=== PATIENT | male | born 1975 | race American Indian/Alaskan Native ===

== ENCOUNTER 2021-11-05 12:36 | Inpatient (IN) | payer OTHER ==
[2021-11-05] MEDS ORDERED: NITROGLYCERIN DRIP 50 MG/250 ML BOTTLE IV ONE (12:52)
--- NOTE | 2021-11-05 13:01 | Emergency Department Report ---
ED Shortness of Breath HPI - General Chief Complaint: Dyspnea/Respdistress Stated Complaint: CHF Time Seen by Provider: 11/05/21 12:49 Source: patient, EMS, old records reviewed (none) Mode of arrival: Stretcher Limitations: No Limitations - History of Present Illness Initial Comments: 46-year-old male with no known past medical history because he has not been to the doctor since the age of 6 presents to the hospital from [facility] with diagnosis of renal failure, CHF, and hypertensive emergency. Patient states he has been having progressively worsening dyspnea on exertion, orthopnea, edema and PND for the past 2 weeks. Vital signs at [facility] were initially 257/159, heart rate 107, sat 95% (questionable room air), and respiratory rate 22 patient denies chest pain or infectious symptoms. Patient was treated with Lasix 80 mg IV, labetalol 20 mg IV, and a 1 inch Nitropaste was placed. Patient is diaphoretic without respiratory upon my examination. He denies any urine output since receiving IV Lasix - Related Data Home Medications Medication Instructions Recorded Confirmed Last Taken No Known Home Medications [No 11/06/21 11/06/21 Unknown Reported Home Medications] Allergies Allergy/AdvReac Type Severity Reaction Status Date / Time No Known Allergies Allergy Verified 11/05/21 12:44 ED Review of Systems ROS: Stated complaint: CHF Other details as noted in HPI Comment: All other systems reviewed and negative ED Past Medical Hx - Medications Home Medications: Home Medications Medication Instructions Recorded Confirmed Last Taken Type No Known Home Medications [No 11/06/21 11/06/21 Unknown History Reported Home Medications] ED Physical Exam - General Limitations: No Limitations - Other Other exam information: General: No acute distress Head: Atraumatic Eyes: normal appearance ENT: Moist mucous membranes Neck: Normal appearance, no midline tenderness Chest: Clear to auscultation bilaterally CV: Regular rate and rhythm Abdomen: Soft, normal bowel sounds, nontender, nondistended, no rebound or guarding Back: Normal inspection Extremity: Normal inspection, full range of motion, lower extremity edema Neuro: Alert O x 3, no facial asymmetry, speech clear, no gross motor sensory deficit Psych: Appropriate behavior Skin: Diaphoretic ED Course Vital Signs 11/05/21 11/05/21 11/05/21 12:39 12:54 12:55 Temperature 98.7 F 97.9 F Pulse Rate 85 83 Pulse Rate [ From Monitor] Respiratory 18 20 20 Rate Blood Pressure 219/157 Blood Pressure 240/140 219/157 [Left] O2 Sat by Pulse 99 99 99 Oximetry 11/05/21 11/05/21 11/05/21 13:00 13:16 13:30 Temperature Pulse Rate 85 85 80 Pulse Rate [ From Monitor] Respiratory 20 13 18 Rate Blood Pressure 219/157 209/157 199/132 Blood Pressure [Left] O2 Sat by Pulse 99 100 100 Oximetry 11/05/21 11/05/21 11/05/21 13:46 14:00 14:08 Temperature Pulse Rate 85 81 Pulse Rate [ From Monitor] Respiratory 39 H 20 Rate Blood Pressure 225/153 225/157 Blood Pressure 206/151 [Left] O2 Sat by Pulse 97 100 100 Oximetry 11/05/21 11/05/21 11/05/21 14:15 14:30 14:31 Temperature 98.4 F Pulse Rate 83 83 80 Pulse Rate [ From Monitor] Respiratory 31 H 29 H 26 H Rate Blood Pressure 174/105 160/105 Blood Pressure 160/105 [Left] O2 Sat by Pulse 98 98 99 Oximetry 11/05/21 11/05/21 11/05/21 14:46 15:00 15:16 Temperature Pulse Rate 85 84 82 Pulse Rate [ From Monitor] Respiratory 19 17 19 Rate Blood Pressure 162/100 153/83 169/88 Blood Pressure 156/102 [Left] O2 Sat by Pulse 98 99 98 Oximetry 11/05/21 11/05/21 11/05/21 15:30 15:46 16:00 Temperature Pulse Rate 83 86 88 Pulse Rate [ From Monitor] Respiratory 20 15 20 Rate Blood Pressure 149/81 141/94 141/94 Blood Pressure 168/96 [Left] O2 Sat by Pulse 98 99 99 Oximetry 11/05/21 11/05/21 11/05/21 16:16 16:30 16:46 Temperature Pulse Rate 84 83 Pulse Rate [ From Monitor] Respiratory 32 H 21 Rate Blood Pressure 151/84 148/90 150/87 Blood Pressure [Left] O2 Sat by Pulse 98 98 95 Oximetry 11/05/21 11/05/21 11/05/21 17:00 17:16 17:18 Temperature 98.4 F Pulse Rate 85 89 88 Pulse Rate [ From Monitor] Respiratory 41 H 26 H 20 Rate Blood Pressure 168/86 184/83 Blood Pressure 166/79 [Left] O2 Sat by Pulse 98 97 97 Oximetry 11/05/21 11/05/21 11/05/21 17:30 17:46 18:00 Temperature Pulse Rate 87 89 91 H Pulse Rate [ From Monitor] Respiratory 27 H 30 H 37 H Rate Blood Pressure 159/86 152/79 168/95 Blood Pressure [Left] O2 Sat by Pulse 98 97 98 Oximetry 11/05/21 11/05/21 11/05/21 18:13 18:16 18:30 Temperature Pulse Rate 87 88 93 H Pulse Rate [ From Monitor] Respiratory 20 18 18 Rate Blood Pressure 164/93 165/98 Blood Pressure 164/93 [Left] O2 Sat by Pulse 98 99 94 Oximetry 11/05/21 11/05/21 11/05/21 18:46 19:00 19:16 Temperature Pulse Rate 85 86 86 Pulse Rate [ From Monitor] Respiratory 27 H 19 34 H Rate Blood Pressure 159/86 149/92 157/86 Blood Pressure [Left] O2 Sat by Pulse 92 89 91 Oximetry 11/05/21 11/05/21 11/05/21 19:30 19:46 20:00 Temperature Pulse Rate 84 95 H 83 Pulse Rate [ From Monitor] Respiratory 14 21 28 H Rate Blood Pressure 160/93 142/119 143/88 Blood Pressure [Left] O2 Sat by Pulse 89 91 92 Oximetry 11/05/21 11/05/21 11/05/21 20:16 20:30 20:46 Temperature Pulse Rate 83 94 H 89 Pulse Rate [ From Monitor] Respiratory 30 H 23 19 Rate Blood Pressure 183/91 170/92 178/86 Blood Pressure [Left] O2 Sat by Pulse 92 91 96 Oximetry 11/05/21 11/05/21 11/05/21 21:00 21:16 21:30 Temperature Pulse Rate 89 Pulse Rate [ From Monitor] Respiratory 20 Rate Blood Pressure 165/104 166/95 169/96 Blood Pressure [Left] O2 Sat by Pulse 96 93 95 Oximetry 11/05/21 11/05/21 11/05/21 21:46 22:00 22:16 Temperature Pulse Rate 88 Pulse Rate [ From Monitor] Respiratory 11 L Rate Blood Pressure 187/94 187/94 177/96 Blood Pressure [Left] O2 Sat by Pulse 96 95 93 Oximetry 11/05/21 11/05/21 11/05/21 22:30 22:46 23:00 Temperature Pulse Rate 84 80 70 Pulse Rate [ From Monitor] Respiratory 22 28 H 20 Rate Blood Pressure 177/96 179/110 179/110 Blood Pressure [Left] O2 Sat by Pulse 90 98 96 Oximetry 11/05/21 11/05/21 11/05/21 23:16 23:28 23:30 Temperature Pulse Rate 91 H 96 H 86 Pulse Rate [ From Monitor] Respiratory 21 13 32 H Rate Blood Pressure 179/110 179/110 179/110 Blood Pressure [Left] O2 Sat by Pulse 99 98 99 Oximetry 11/05/21 11/05/21 11/05/21 23:34 23:45 23:56 Temperature Pulse Rate 90 87 84 Pulse Rate [ From Monitor] Respiratory 40 H 31 H 31 H Rate Blood Pressure 179/110 182/104 182/104 Blood Pressure [Left] O2 Sat by Pulse 98 98 95 Oximetry 11/06/21 11/06/21 11/06/21 00:00 00:16 00:30 Temperature Pulse Rate 88 82 79 Pulse Rate [ From Monitor] Respiratory 30 H 28 H 28 H Rate Blood Pressure 182/104 179/110 179/110 Blood Pressure [Left] O2 Sat by Pulse 97 97 97 Oximetry 11/06/21 11/06/21 11/06/21 00:45 01:00 01:16 Temperature Pulse Rate 72 86 83 Pulse Rate [ From Monitor] Respiratory 22 14 40 H Rate Blood Pressure 179/103 179/103 179/103 Blood Pressure [Left] O2 Sat by Pulse 96 99 94 Oximetry 11/06/21 11/06/21 11/06/21 01:30 01:46 02:00 Temperature Pulse Rate 83 80 76 Pulse Rate [ From Monitor] Respiratory 29 H 21 22 Rate Blood Pressure 179/103 180/114 180/114 Blood Pressure [Left] O2 Sat by Pulse 100 99 99 Oximetry 11/06/21 11/06/21 11/06/21 02:16 02:30 02:45 Temperature Pulse Rate 75 81 78 Pulse Rate [ From Monitor] Respiratory 28 H 24 30 H Rate Blood Pressure 180/114 180/114 177/114 Blood Pressure [Left] O2 Sat by Pulse 98 98 99 Oximetry 11/06/21 11/06/21 11/06/21 03:00 03:16 03:30 Temperature Pulse Rate 81 79 76 Pulse Rate [ From Monitor] Respiratory 22 27 H 27 H Rate Blood Pressure 177/114 177/114 177/114 Blood Pressure [Left] O2 Sat by Pulse 100 97 81 L Oximetry 11/06/21 11/06/21 11/06/21 03:45 04:00 04:16 Temperature Pulse Rate 83 76 84 Pulse Rate [ From Monitor] Respiratory 23 38 H 34 H Rate Blood Pressure 185/115 185/115 185/115 Blood Pressure [Left] O2 Sat by Pulse 93 99 93 Oximetry 11/06/21 11/06/21 11/06/21 04:30 04:45 05:00 Temperature Pulse Rate 79 73 Pulse Rate [ From Monitor] Respiratory 24 32 H Rate Blood Pressure 185/115 174/103 174/103 Blood Pressure [Left] O2 Sat by Pulse 99 99 97 Oximetry 11/06/21 11/06/21 11/06/21 05:16 05:30 05:45 Temperature Pulse Rate 68 79 76 Pulse Rate [ From Monitor] Respiratory Rate Blood Pressure 174/103 174/103 181/105 Blood Pressure [Left] O2 Sat by Pulse 99 99 98 Oximetry 11/06/21 11/06/21 11/06/21 07:00 09:00 10:00 Temperature Pulse Rate 86 84 Pulse Rate [ From Monitor] Respiratory 23 Rate Blood Pressure 177/110 190/121 180/118 Blood Pressure [Left] O2 Sat by Pulse 100 100 92 Oximetry 11/06/21 11/06/21 11/06/21 11:00 12:00 13:00 Temperature Pulse Rate Pulse Rate [ From Monitor] Respiratory Rate Blood Pressure 165/103 165/103 153/86 Blood Pressure [Left] O2 Sat by Pulse 95 100 76 L Oximetry 11/06/21 11/06/21 11/06/21 14:00 15:00 16:00 Temperature Pulse Rate Pulse Rate [ 85 From Monitor] Respiratory 20 Rate Blood Pressure 156/93 156/93 143/83 Blood Pressure [Left] O2 Sat by Pulse 97 93 98 Oximetry 11/06/21 11/06/21 11/06/21 16:10 16:20 16:30 Temperature Pulse Rate Pulse Rate [ From Monitor] Respiratory Rate Blood Pressure 143/83 143/83 143/83 Blood Pressure [Left] O2 Sat by Pulse 98 95 99 Oximetry 11/06/21 16:44 Temperature Pulse Rate Pulse Rate [ From Monitor] Respiratory Rate Blood Pressure Blood Pressure [Left] O2 Sat by Pulse 94 Oximetry - Consultations Consultation #1: 11/05/21 17:21 Case s/w DR Wilkes with [facility]. granted permission to admit here. Will follow up on patient. ED Medical Decision Making - Lab Data Result diagrams: 11/07/21 05:53 11/07/21 05:53 Lab Results 11/05/21 11/05/21 11/05/21 Range/Units 13:26 13:26 13:26 WBC 10.4 (4.5-11.0) K/mm3 RBC 5.28 H (3.65-5.03) M/mm3 Hgb 14.9 (11.8-15.2) gm/dl Hct 46.2 H (35.5-45.6) % MCV 88 (84-94) fl MCH 28 (28-32) pg MCHC 32 (32-34) % RDW 17.7 H (13.2-15.2) % Plt Count 266 (140-440) K/mm3 Lymph % (Auto) 22.6 (13.4-35.0) % Ida % (Auto) 5.8 (0.0-7.3) % Eos % (Auto) 0.9 (0.0-4.3) % Baso % (Auto) 1.0 (0.0-1.8) % Lymph # (Auto) 2.3 (1.2-5.4) K/mm3 Ida # (Auto) 0.6 (0.0-0.8) K/mm3 Eos # (Auto) 0.1 (0.0-0.4) K/mm3 Baso # (Auto) 0.1 (0.0-0.1) K/mm3 Seg Neutrophils % 69.7 (40.0-70.0) % Seg Neutrophils # 7.2 (1.8-7.7) K/mm3 PT 18.9 H (12.2-14.9) Sec. INR 1.41 H (0.87-1.13) APTT 37.1 H (24.2-36.6) Sec. D-Dimer 378.20 H (0-234) ng/mlDDU Sodium 144 (137-145) mmol/L Potassium 3.9 (3.6-5.0) mmol/L Chloride 105.9 (98-107) mmol/L Carbon Dioxide 26 (22-30) mmol/L Anion Gap 16 mmol/L BUN 28 H (9-20) mg/dL Creatinine 1.9 H (0.8-1.3) mg/dL Estimated GFR 46 ml/min BUN/Creatinine Ratio 15 % Glucose 110 H (75-100) mg/dL Calcium 9.2 (8.4-10.2) mg/dL Total Bilirubin 1.20 (0.1-1.2) mg/dL AST 49 H (5-40) units/L ALT 103 H (7-56) units/L Alkaline Phosphatase 83 (35-129) units/L Troponin T 0.018 (0.00-0.029) ng/mL NT-Pro-B Natriuret Pep (0-450) pg/mL Total Protein 6.4 (6.3-8.2) g/dL Albumin 3.8 L (3.9-5) g/dL Albumin/Globulin Ratio 1.5 % 11/05/21 11/05/21 Range/Units 15:35 15:35 WBC (4.5-11.0) K/mm3 RBC (3.65-5.03) M/mm3 Hgb (11.8-15.2) gm/dl Hct (35.5-45.6) % MCV (84-94) fl MCH (28-32) pg MCHC (32-34) % RDW (13.2-15.2) % Plt Count (140-440) K/mm3 Lymph % (Auto) (13.4-35.0) % Ida % (Auto) (0.0-7.3) % Eos % (Auto) (0.0-4.3) % Baso % (Auto) (0.0-1.8) % Lymph # (Auto) (1.2-5.4) K/mm3 Ida # (Auto) (0.0-0.8) K/mm3 Eos # (Auto) (0.0-0.4) K/mm3 Baso # (Auto) (0.0-0.1) K/mm3 Seg Neutrophils % (40.0-70.0) % Seg Neutrophils # (1.8-7.7) K/mm3 PT (12.2-14.9) Sec. INR (0.87-1.13) APTT (24.2-36.6) Sec. D-Dimer (0-234) ng/mlDDU Sodium (137-145) mmol/L Potassium (3.6-5.0) mmol/L Chloride (98-107) mmol/L Carbon Dioxide (22-30) mmol/L Anion Gap mmol/L BUN (9-20) mg/dL Creatinine (0.8-1.3) mg/dL Estimated GFR ml/min BUN/Creatinine Ratio % Glucose (75-100) mg/dL Calcium (8.4-10.2) mg/dL Total Bilirubin (0.1-1.2) mg/dL AST (5-40) units/L ALT (7-56) units/L Alkaline Phosphatase (35-129) units/L Troponin T < 0.010 (0.00-0.029) ng/mL NT-Pro-B Natriuret Pep 7394 H (0-450) pg/mL Total Protein (6.3-8.2) g/dL Albumin (3.9-5) g/dL Albumin/Globulin Ratio % - EKG Data -: EKG Interpreted by [facility] EKG shows normal: sinus rhythm, ST-T waves (no stemi, LVH) Rate: normal - EKG Data When compared to previous EKG there are: previous EKG unavailable - Radiology Data Radiology results: report reviewed CHEST 1 VIEW 11/05/2021 12:15 PM INDICATION / CLINICAL INFORMATION: Dyspnea. COMPARISON: None available. FINDINGS: SUPPORT DEVICES: None. HEART / MEDIASTINUM: There is moderate enlargement of the cardiac silhouette. No other significant abnormality. LUNGS / PLEURA: No significant pulmonary abnormality. No significant pleural effusion. No pneumothorax. ADDITIONAL FINDINGS: No significant additional findings. IMPRESSION: Moderate enlargement of the cardiac silhouette, possibly due to a pericardial effusion. No other acute findings. CT angio chest INDICATION / CLINICAL INFORMATION: sob, elevated ddimer, cardiomegaly 100ml of [id number]. TECHNIQUE: Axial CT images were obtained through the chest after injection of 100 cc of Omnipaque 350 IV contrast. 3 plane MIP and/or 3D reconstructions were produced. All CT scans at this location are performed using CT dose reduction for ALARA by means of automated exposure control. COMPARISON: None available. FINDINGS: PULMONARY ARTERIES: Suboptimal contrast bolus timing limits evaluation for segmental and subsegmental pulmonary emboli. No evidence of central or large segmental pulmonary embolus. THORACIC AORTA: No significant abnormality. HEART: Heart is enlarged. There is no pericardial effusion. CORONARY ARTERY CALCIFICATION: No significant calcification. LYMPHADENOPATHY: No significant thoracic lymphadenopathy. LUNGS/PLEURA: Small right pleural effusion with asymmetric right lower lobe airspace consolidation. Left lung is clear. No pneumothorax. OTHER FINDINGS: None. UPPER ABDOMEN: No acute findings. SKELETAL SYSTEM: No acute osseous findings. IMPRESSION: 1. Suboptimal contrast bolus timing limits evaluation for segmental and subsegmental pulmonary emboli. No evidence of central or large segmental pulmonary embolus. 2. Small right pleural effusion with asymmetric right lower lobe airspace consolidation, may reflect atelectasis or developing pneumonia. 3. Cardiomegaly without evidence of significant pulmonary edema. - Medical Decision Making 46-year-old male with with newly diagnosed hypertension, CHF, renal sufficiency with likely longstanding on treated hypertensio. Patient requiring Cardene drip. Treated with Lasix and nitroglycerin prior to arrival with minimal improvement in symptoms. CT angiogram chest does not show a pericardial effusion, pulmonary embolism and shows effusion with atelectasis versus infiltrate. Clinical picture more suggestive of pyelectasis/CHF. Mild renal insufficiency noted. Patient required Cardene drip with titration for adequate blood pressure control. Case discussed with Kamer[facility] with subsequent discussion with hospitalist for admission Critical Care Time: Yes Critical care time in (mins) excluding proc time.: 40 Critical care attestation.: If time is entered above; I have spent that time in minutes in the direct care of this critically ill patient, excluding procedure time. Critical Care Time: 40 Minutes of critical care time excluding procedures were used in the care of the patient. I came immediately to the bedside upon patient's arrival. I obtained history from EMS at the bedside. I discussed treatment plan with the nursing team members. I reviewed electronic recordPatient required multiple interventions, reassessments, and titration of hypertensive drips. Patient also require consultation with Kameron regarding admission disposition ED Disposition Clinical Impression: Hypertensive emergency, New onset of congestive heart failure, Obesity, Acute renal insufficiency Disposition: ADMITTED INPATIENT Is pt being admited?: Yes Condition: Stable Time of Disposition: 17:24 (Dr Robles/[facility])
--- NOTE | 2021-11-05 13:24 | XRay Report ---
CHEST 1 VIEW 11/05/2021 12:15 PM INDICATION / CLINICAL INFORMATION: Dyspnea. COMPARISON: None available. FINDINGS: SUPPORT DEVICES: None. HEART / MEDIASTINUM: There is moderate enlargement of the cardiac silhouette. No other significant ab normality. LUNGS / PLEURA: No significant pulmonary abnormality. No significant pleural effusion. No pneumothora x. ADDITIONAL FINDINGS: No significant additional findings. IMPRESSION: Moderate enlargement of the cardiac silhouette, possibly due to a pericardial effusion. No other acut e findings. Signer Name: Oliver Izaguirre MD Signed: 11/05/2021 1:19 PM Workstation Name: [email or web address]
[2021-11-05] MEDS ORDERED: niCARdipine DRIP 40 MG/200 ML BAG IV ONE (13:32)
[2021-11-05 14:27] LABS: Basophils # (Auto) 0.1 K/mm3 (0.0-0.1); Eosinophils # (Auto) 0.1 K/mm3 (0.0-0.4); Eosinophils % (Auto) 0.9 % (0.0-4.3); Hematocrit 46.2 % (35.5-45.6); Hemoglobin 14.9 gm/dl (11.8-15.2); Lymphocytes # (Auto) 2.3 K/mm3 (1.2-5.4); Lymphocytes % (Auto) 22.6 % (13.4-35.0); Mean Corpuscular HGB Conc 32 % (32-34); Mean Corpuscular Volume 88 fl (84-94); Monocytes # (Auto) 0.6 K/mm3 (0.0-0.8); Monocytes % (Auto) 5.8 % (0.0-7.3); Platelet Count 266 K/mm3 (140-440); Red Blood Count 5.28 M/mm3 (3.65-5.03); Red Cell Distribution Width 17.7 % (13.2-15.2)
[2021-11-05 14:28] LABS: INR 1.41 (0.87-1.13)
[2021-11-05 14:29] LABS: Partial Thromboplastin Time 37.1 Sec. (24.2-36.6)
[2021-11-05 14:34] LABS: Albumin 3.8 g/dL (3.9-5); Calcium 9.2 mg/dL (8.4-10.2)
--- NOTE | 2021-11-05 17:09 | Cat Scan Report ---
CT angio chest INDICATION / CLINICAL INFORMATION: sob, elevated ddimer, cardiomegaly 100ml of [id number]. TECHNIQUE: Axial CT images were obtained through the chest after injection of 100 cc of Omnipaque 350 IV contrast. 3 plane MIP and/or 3D reconstructions were produced. All CT scans at this location are performed using CT dose reduction for ALARA by means of automated exposure control. COMPARISON: None available. FINDINGS: PULMONARY ARTERIES: Suboptimal contrast bolus timing limits evaluation for segmental and subsegmental pulmonary emboli. No evidence of central or large segmental pulmonary embolus. THORACIC AORTA: No significant abnormality. HEART: Heart is enlarged. There is no pericardial effusion. CORONARY ARTERY CALCIFICATION: No significant calcification. LYMPHADENOPATHY: No significant thoracic lymphadenopathy. LUNGS/PLEURA: Small right pleural effusion with asymmetric right lower lobe airspace consolidation. L eft lung is clear. No pneumothorax. OTHER FINDINGS: None. UPPER ABDOMEN: No acute findings. SKELETAL SYSTEM: No acute osseous findings. IMPRESSION: 1. Suboptimal contrast bolus timing limits evaluation for segmental and subsegmental pulmonary emboli . No evidence of central or large segmental pulmonary embolus. 2. Small right pleural effusion with asymmetric right lower lobe airspace consolidation, may reflect atelectasis or developing pneumonia. 3. Cardiomegaly without evidence of significant pulmonary edema. Signer Name: Justin Cervantes MD Signed: 11/05/2021 5:05 PM Workstation Name: [email or web address]
--- NOTE | 2021-11-05 17:24 | History and Physical Report ---
History of Present Illness Chief complaint: It is hard to breathe and my legs are swollen History of present illness: 47 YO Male with Obesity Hypoventilation Syndrome, HTN presents ED for evaluation. Patient reports it is hard to breathe and my legs are swollen. Patient states that over the past 2 weeks he has experienced shortness of breath, decreased exercise tolerance, dyspnea on exertion, dyspnea at rest, leg swelling, orthopnea, paroxysmal nocturnal dyspnea, 10 pound unintentional weight gain, and shortness of breath with worsening symptoms over the same timeframe. Patient was seen and evaluated at the [place] outpatient clinic today and was found to have an elevated blood pressure and a pulse oximetry of 85% on room air. EMS was notified and upon arrival the patient was found to be in distress and subsequent transported to [facility] for further care and evaluation of the aforementioned symptoms. The patient was seen and evaluated in the emergency department. All lab and imaging studies reviewed. Patient was found to have a blood pressure 219-247 mmHg / 140-157 mmHg which is consistent with hypertensive emergency as well as clinical symptoms consistent with CHF decompensation, as well as acute kidney injury. Patient initiated on nitro drip and admitted to IM due to increased risk of worsening symptoms and for medical stabilization. Patient also initiated on CHF protocol. Patient treated with diuretic therapy in the emergency department with improvement in symptoms and normalization of pulse oximetry. Patient denies fever, chills, chest pain, palpitation, adductive cough, skin rash, recent contact, or known exposure to COVID-19. No prior admission for review. No medication listed at time of admission for reconciliation. Advanced care planning conducted in ED. Past History Past Medical History: other (See HPI) Past Surgical History: No surgical history, Other (Reviewed) Social history: , lives with family. denies: smoking, alcohol abuse, prescription drug abuse Family history: diabetes, hypertension Medications and Allergies Allergies Allergy/AdvReac Type Severity Reaction Status Date / Time No Known Allergies Allergy Verified 11/05/21 12:44 Active Meds: Active Medications Nicardipine/Sodium Chloride (Cardene Drip 40 Mg/200 Ml) 40 mg in 200 mls @ 25 mls/hr IV ONCE ONE; Protocol Stop: 11/05/21 21:31 Last Titration: 11/05/21 14:06 Dose: 7.5 mg/hr, 37.5 mls/hr Review of Systems Constitutional: weight gain, fatigue, no fever, no chills, no sweats Ears, nose, mouth and throat: no ear pain, no ear discharge, no tinnitis, no decreased hearing Cardiovascular: orthopnea, shortness of breath, dyspnea on exertion, paroxysmal nocturnal dyspnea, high blood pressure, leg edema, decreased exercise tolerance, no chest pain Respiratory: no cough, no cough with sputum, no excessive sputum, no hemoptysis Gastrointestinal: no abdominal pain, no nausea, no vomiting, no diarrhea, no constipation Genitourinary Male: no hematuria, no flank pain, no discharge, no urinary frequency, no urinary hesitancy Rectal: no pain, no incontinence, no bleeding Musculoskeletal: no neck stiffness, no neck pain, no arm numbness/tingling, no shooting leg pain Integumentary: no rash, no pruritis, no redness, no sores, no wounds, no jaundice Neurological: no head injury, no transient paralysis, no paralysis, no weakness, no parathesias, no numbness, no seizures Psychiatric: no anxiety, no memory loss, no sleep disturbances, no hypersomnia, no change in appetite, no change in libido, no disorientation Endocrine: no cold intolerance, no heat intolerance, no polyphagia, no excessive thirst, no polydipsia, no nocturia, no excessive sweating Hematologic/Lymphatic: no easy bruising, no easy bleeding Allergic/Immunologic: no urticaria, no allergic rhinitis, no wheezing Exam - Constitutional Vitals: Temp Pulse Resp BP Pulse Ox 98.4 F 88 20 166/79 97 11/05/21 17:18 11/05/21 17:18 11/05/21 17:18 11/05/21 17:18 11/05/21 17:18 General appearance: Present: mild distress, obese - EENT Eyes: Present: PERRL ENT: hearing intact, clear oral mucosa - Neck Neck: Present: supple, normal ROM - Respiratory Respiratory effort: normal Respiratory: bilateral: diminished - Cardiovascular Heart Sounds: Present: S1 & S2. Absent: rub, click - Extremities Extremities: pulses symmetrical Extremity abnormal: edema Peripheral Pulses: within normal limits - Abdominal General gastrointestinal: Present: soft, non-tender, non-distended, normal bowel sounds Male genitourinary: Present: normal - Integumentary Integumentary: Present: clear, warm, dry - Musculoskeletal Musculoskeletal: gait normal, strength equal bilaterally - Psychiatric Psychiatric: appropriate mood/affect, intact judgment & insight - Neurologic Neurologic: CNII-XII intact, moves all extremities HEART Score - HEART Score Troponin: Troponin T < 0.010 ng/mL (0.00-0.029) 11/05/21 15:35 Results - Labs CBC & Chem 7: 11/05/21 13:26 11/05/21 13:26 Labs: Abnormal lab results 11/05/21 11/05/21 11/05/21 Range/Units 13:26 13:26 13:26 RBC 5.28 H (3.65-5.03) M/mm3 Hct 46.2 H (35.5-45.6) % RDW 17.7 H (13.2-15.2) % PT 18.9 H (12.2-14.9) Sec. INR 1.41 H (0.87-1.13) APTT 37.1 H (24.2-36.6) Sec. D-Dimer 378.20 H (0-234) ng/mlDDU BUN 28 H (9-20) mg/dL Creatinine 1.9 H (0.8-1.3) mg/dL Glucose 110 H (75-100) mg/dL AST 49 H (5-40) units/L ALT 103 H (7-56) units/L NT-Pro-B Natriuret Pep (0-450) pg/mL Albumin 3.8 L (3.9-5) g/dL 11/05/21 Range/Units 15:35 RBC (3.65-5.03) M/mm3 Hct (35.5-45.6) % RDW (13.2-15.2) % PT (12.2-14.9) Sec. INR (0.87-1.13) APTT (24.2-36.6) Sec. D-Dimer (0-234) ng/mlDDU BUN (9-20) mg/dL Creatinine (0.8-1.3) mg/dL Glucose (75-100) mg/dL AST (5-40) units/L ALT (7-56) units/L NT-Pro-B Natriuret Pep 7394 H (0-450) pg/mL Albumin (3.9-5) g/dL Assessment and Plan - Patient Problems (1) Hypertensive emergency Current Visit: Yes Status: Acute Plan to address problem: Admit to IMCU: Nicardipine drip, monitor blood pressure every shift, blood pressure check as per nursing care protocol, (2) New onset of congestive heart failure Current Visit: Yes Status: Acute Plan to address problem: Strict I's/O, monitor urine output every shift, daily weight, afterload reduction, blood pressure control, cardiology team consulted, thyroid panel, magnesium level, echocardiogram ordered and pending at time of admission, diuresis, supplemental oxygen, pulse oximetry. (3) Obesity hypoventilation syndrome Current Visit: Yes Status: Acute Plan to address problem: Balanced diet, increase physical activity discharge, outpatient pulmonary follow-up for sleep study. (4) Acute kidney injury (ANSHU) with acute tubular necrosis (ATN) Current Visit: Yes Status: Acute Plan to address problem: IV fluid resuscitation therapy as clinically indicated, BMP, repeat BMP in a.m., monitor urine output every shift, monitor fluid balance. (5) DVT prophylaxis Current Visit: Yes Status: Acute Plan to address problem: SCD to bilateral lower extremities while in bed (6) Advance care planning Current Visit: Yes Status: Acute Plan to address problem: Disease education data, care plan discussed, diagnoses discussed, prognosis discussed, patient is full code. Patient acknowledges understanding and agreement with care plan, +30 minutes. (7) Preventative health care Current Visit: Yes Status: Acute Plan to address problem: Patient counseled regarding weight reduction, meal planning, increase physical activity at discharge, exercise planning, intermittent fasting, outpatient follow-up with primary care physician for all age and risk factor appropriate screening test. +30 minutes.
[2021-11-05] MEDS ORDERED: oxyCODONE /ACETAMINOPHEN 5-325MG TAB PO PRN (17:25)
[2021-11-05] MEDS ORDERED: ALBUTEROL 2.5 MG/3 ML NEBU IH PRN (18:00)
[2021-11-05] MEDS ORDERED: MORPHINE 4 MG/1 ML INJ IV PRN (18:00)
[2021-11-05] MEDS ORDERED: ACETAMINOPHEN 325 MG TAB PO PRN (18:00)
[2021-11-05 20:26] LABS: Free T4 (Free Thyroxine) 1.41 ng/dL (0.76-1.46)
[2021-11-05] MEDS: LISINOPRIL 5 MG TAB PO SCH (23:25)
[2021-11-05] MEDS: METOPROLOL TARTRATE 25 MG TAB PO SCH (23:25)
[2021-11-06 04:43] LABS: BUN/Creatinine Ratio 16; Blood Urea Nitrogen 24 mg/dL (9-20); Calcium 8.9 mg/dL (8.4-10.2); Hemolysis Index 98
[2021-11-06] MEDS ORDERED: FUROSEMIDE 20 MG/2 ML INJ IV SCH ×2 (06:00→08:23)
--- NOTE | 2021-11-06 08:29 | Progress Note ---
Assessment and Plan Assessment and plan: 47 YO Male with Obesity Hypoventilation Syndrome, HTN presents ED for evaluation. Patient reports it is hard to breathe and my legs are swollen. Patient states that over the past 2 weeks he has experienced shortness of breath, decreased exercise tolerance, dyspnea on exertion, dyspnea at rest, leg swelling, orthopnea, paroxysmal nocturnal dyspnea, 10 pound unintentional weight gain, and shortness of breath with worsening symptoms over the same timeframe. Patient was seen and evaluated at the [place] outpatient clinic today and was found to have an elevated blood pressure and a pulse oximetry of 85% on room air. EMS was notified and upon arrival the patient was found to be in distress and subsequent transported to [facility] for further care and evaluation of the aforementioned symptoms. The patient was seen and evaluated in the emergency department. All lab and imaging studies reviewed. Patient was found to have a blood pressure 219-247 mmHg / 140-157 mmHg which is consistent with hypertensive emergency as well as clinical symptoms consistent with CHF decompensation, as well as acute kidney injury. Patient initiated on nitro drip and admitted to IMCU due to increased risk of worsening symptoms and for medical stabilization. Patient also initiated on CHF protocol. Patient treated with diuretic therapy in the emergency department with improvement in symptoms and normalization of pulse oximetry. Patient denies fever, chills, chest pain, palpitation, adductive cough, skin rash, recent contact, or known exposure to COVID-19. No prior admission for review. No medication listed at time of admission for reconciliation. Advanced care planning conducted in ED. Acute hypoxic respiratory failure Hypertensive emergency Presumed Acute Systolic Heart failure NYHA 3 ANSHU with vasomotor nephropathy Secondary Coagulopathy ALVERTO Elevated LFT MORBID OBESITY Non Complaint Has not seen a doctor since he was 6years old until yesterday Has been diagnosed with sleep apnea since college Falls asleep during the day time for the last month Orthopena for the last 10 days Leg swelling for the last 6 weeks Continue with goal-directed medical therapy. Had initially started the patient on Procardia but per cardiology adjusted beta- leola and KOBE inhibitor instead. We will monitor renal function. Dietitian consultation Acurate I/O BP still elevated, started back on Nicardipine drip which appeared to have been off since last night Nephrology consult Cardiology consult Advance care planning discussion had with the patient maintains full code. Plan of care discussed in detail Preventive care discussion also had with the patient on management of congestive heart failure in addition to obstructive sleep apnea and the need to have his clinical sleep study on discharge. Weight loss counseling also provided for 15 minutes. Continue IMCU admission till BP stablized The high probability of a clinically significant, sudden or life threatening deterioration of the [cardiac, pulmonary] system(s) required my full and direct attention, intervention and personal management. The aggregate critical care time was [60] minutes. This time is in addition to time spent performing reporte d procedures but includes the following: [x] Data Review and interpretation [x] Patient assessment and monitoring of vital signs [x] Documentation [x] Medication orders and management History Interval history: Patient seen and examined admitted with congestive heart failure symptoms. Blood pressure still elevated denies any chest pain or headache at this time. Still with orthopnea. Hospitalist Physical - Physical exam Narrative exam: VITAL SIGNS: Reviewed. GENERAL: The patient appears normally developed, morbidly obese vital signs as documented. HEAD: No signs of head trauma. EYES: Pupils are equal. Extraocular motions intact. EARS: Hearing grossly intact. MOUTH: Oropharynx is normal. NECK: No adenopathy, no JVD. CHEST: Chest with fine rales at the bases breath sounds bilaterally. No wheezes. CARDIAC: Regular rate and rhythm. S1 and S2, without murmurs, gallops, or rubs. VASCULAR: +2 pitting edema. Peripheral pulses normal and equal in all ext remities. ABDOMEN: Soft, non tender and non distended. No rebound or guarding, and no masses palpated. Bowel Sounds normal. MUSCULOSKELETAL: Good range of motion of all major joints. Extremities without clubbing, cyanosis. +2 pitting edema bilaterally. NEUROLOGIC EXAM: Alert and oriented x 3 No focal sensory or strength deficits. Speech normal. Follows commands. PSYCHIATRIC: Mood normal. SKIN: detail exam as documented in skin assessment - Constitutional Vitals: Temp Pulse Resp BP Pulse Ox 98.4 F 86 23 177/110 100 11/05/21 17:18 11/06/21 07:00 11/06/21 07:00 11/06/21 07:00 11/06/21 07:00 General appearance: Present: mild distress, obese HEART Score - HEART Score Troponin: Troponin T < 0.010 ng/mL (0.00-0.029) 11/05/21 19:14 Results - Labs CBC & Chem 7: 11/05/21 13:26 11/06/21 03:45 Labs: Laboratory Last Values WBC 10.4 K/mm3 (4.5-11.0) 11/05/21 13:26 RBC 5.28 M/mm3 (3.65-5.03) H 11/05/21 13:26 Hgb 14.9 gm/dl (11.8-15.2) 11/05/21 13:26 Hct 46.2 % (35.5-45.6) H 11/05/21 13:26 MCV 88 fl (84-94) 11/05/21 13:26 MCH 28 pg (28-32) 11/05/21 13:26 MCHC 32 % (32-34) 11/05/21 13: RDW 17.7 % (13.2-15.2) H 11/05/21 13:26 Plt Count 266 K/mm3 (140-440) 11/05/21 13:26 Lymph % (Auto) 22.6 % (13.4-35.0) 11/05/21 13:26 [place] % (Auto) 5.8 % (0.0-7.3) 11/05/21 13:26 Eos % (Auto) 0.9 % (0.0-4.3) 11/05/21 13: Baso % (Auto) 1.0 % (0.0-1.8) 11/05/21 13:26 Lymph # (Auto) 2.3 K/mm3 (1.2-5.4) 11/05/21 13:26 [place] # (Auto) 0.6 K/mm3 (0.0-0.8) 11/05/21 13:26 Eos # (Auto) 0.1 K/mm3 (0.0-0.4) 11/05/21 13:26 Baso # (Auto) 0.1 K/mm3 (0.0-0.1) 11/05/21 13:26 Seg Neutrophils % 69.7 % (40.0-70.0) 11/05/21 13:26 Seg Neutrophils # 7.2 K/mm3 (1.8-7.7) 11/05/21 13:26 PT 18.9 Sec. (12.2-14.9) H 11/05/21 13:26 INR 1.41 (0.87-1.13) H 11/05/21 13:26 APTT 37.1 Sec. (24.2-36.6) H 11/05/21 13:26 D-Dimer 378.20 ng/mlDDU (0-234) H 11/05/21 13:26 Sodium 144 mmol/L (137-145) 11/06/21 03:45 Potassium 3.9 mmol/L (3.6-5.0) 11/06/21 03:45 Chloride 100.0 mmol/L (98-107) 11/06/21 03:45 Carbon Dioxide 28 mmol/L (22-30) 11/06/21 03:45 Anion Gap 20 mmol/L 11/06/21 03:45 BUN 24 mg/dL (9-20) H 11/06/21 03:45 Creatinine 1.5 mg/dL (0.8-1.3) H 11/06/21 03:45 Estimated GFR > 60 ml/min 11/06/21 03:45 BUN/Creatinine Ratio 16 % 11/06/21 03:45 Glucose 97 mg/dL (75-100) 11/06/21 03:45 Calcium 8.9 mg/dL (8.4-10.2) 11/06/21 03:45 Magnesium 2.20 mg/dL (1.7-2.3) 11/05/21 19:14 Total Bilirubin 1.20 mg/dL (0.1-1.2) 11/05/21 13:26 AST 49 units/L (5-40) H 11/05/21 13:26 ALT 103 units/L (7-56) H 11/05/21 13:26 Alkaline Phosphatase 83 units/L (35-129) 11/05/21 13:26 Troponin T < 0.010 ng/mL (0.00-0.029) 11/05/21 19:14 NT-Pro-B Natriuret Pep 7394 pg/mL (0-450) H 11/05/21 15:35 Total Protein 6.4 g/dL (6.3-8.2) 11/05/21 13:26 Albumin 3.8 g/dL (3.9-5) L 11/05/21 13:26 Albumin/Globulin Ratio 1.5 % 11/05/21 13:26 TSH 3.080 mlU/mL (0.270-4.200) 11/05/21 19:14 Free T4 1.41 ng/dL (0.76-1.46) 11/05/21 19:14 Active Medications - Current Medications Current Medications: Generic Name Dose Route Start Last Admin Trade Name Freq PRN Reason Stop Dose Admin Acetaminophen 650 mg 11/05/21 18:00 Acetaminophen 325 Mg Tab PO Q6H PRN Pain MILD(1-3)/Fever >100.5/COLUNGA Albuterol 2.5 mg 11/05/21 18:00 Albuterol 2.5 Mg/3 Ml Nebu IH Q3HRT PRN Shortness Of Breath Furosemide 40 mg 11/06/21 08:23 Furosemide 20 Mg/2 Ml Inj IV BID@0600,1800 [facility] Nicardipine HCl 50 mg/ Sodium 250 mls @ 25 mls/hr 11/06/21 09:00 Chloride IV TITR NORMA Protocol 5 MG/HR Lisinopril 5 mg 11/05/21 22:00 11/05/21 23:25 Lisinopril 5 Mg Tab PO 5 mg BID NORMA Administration Metoprolol Tartrate 25 mg 11/05/21 22:00 11/05/21 23:25 Metoprolol Tartrate 25 Mg Tab PO 25 mg BID NORMA Administration Morphine Sulfate 1 mg 11/05/21 18:00 Morphine 4 Mg/1 Ml Inj IV Q8H PRN Pain , Severe (7-10) Nifedipine 60 mg 11/06/21 10:00 Nifedipine Xl 60 Mg Tab PO QDAY NORMA Oxycodone/Acetaminophen 1 tab 11/05/21 17:25 Oxycodone /Acetaminophen 5-325mg Tab PO Q16H PRN Pain, Moderate (4-6) Sodium Chloride 10 ml 11/05/21 22:00 11/05/21 23:25 Sodium Chloride 0.9% 10 Ml Flush Syringe IV 11/10/21 21:59 10 ml BID NORMA Administration Sodium Chloride 10 ml 11/05/21 17:25 Sodium Chloride 0.9% 10 Ml Flush Syringe IV 11/10/21 17:24 PRN PRN LINE FLUSH
[2021-11-06] MEDS ORDERED: niCARdipine 50 MG in SODIUM CHLORIDE 0.9% 250ML 230 ML IV SCH (09:00)
[2021-11-06] MEDS ORDERED: NIFEdipine XL 60 MG TAB PO SCH (10:00)
[2021-11-06] MEDS: LISINOPRIL 5 MG TAB PO SCH (10:37)
[2021-11-06] MEDS: FUROSEMIDE 40 MG/4 ML INJ IV SCH ×2 (10:37→17:39)
[2021-11-06] MEDS: METOPROLOL TARTRATE 25 MG TAB PO SCH (10:37)
--- NOTE | 2021-11-06 10:57 | Consultation ---
History of Present Illness - Reason for Consult Consult date: 11/06/21 acute renal failure - History of Present Illness The patient is a 47 YO male with history of Morbid Obesity, ALVERTO and HTN who presented to [facility] ED 11/05/21 with 1 week h/o worsening bilateral leg swelling, shortness of breath, decreased exercise tolerance, ROD, cough, Orthopnea and 10 pound unintentional weight gain. Patient denies fever, chills, chest pain, palpitation, skin rash, recent contact or known exposure to COVID-19, dysuria, heamturia and NSAID intake. Has not seen a doctor since he was 6years old until yesterday. His initial BP was very high. Patient was seen and evaluated at the [place] outpatient clinic and was found to have an elevated blood pressure and a pulse oximetry of 85% on room air. Patient was admitted with hypertensive emergency, Decompensated CHF and ANSHU. Nephrology consulted for further evaluation of ANSHU. Past History Past Medical History: other (See HPI) Past Surgical History: No surgical history, Other (Reviewed) Social history: , lives with family. denies: smoking, alcohol abuse, prescription drug abuse Family history: diabetes, hypertension Medications and Allergies Allergies Allergy/AdvReac Type Severity Reaction Status Date / Time No Known Allergies Allergy Verified 11/05/21 12:44 Home Medications Medication Instructions Recorded Confirmed Last Taken Type No Known Home Medications [No 11/06/21 11/06/21 Unknown History Reported Home Medications] Active Meds: Active Medications Acetaminophen (Acetaminophen 325 Mg Tab) 650 mg PO Q6H PRN PRN Reason: Pain MILD(1-3)/Fever >100.5/COLUNGA Albuterol (Albuterol 2.5 Mg/3 Ml Nebu) 2.5 mg IH Q3HRT PRN PRN Reason: Shortness Of Breath Furosemide (Furosemide 40 Mg/4 Ml Inj) 40 mg IV BID@0600,1800 NORMA Last Admin: 11/06/21 10:37 Dose: 40 mg Nicardipine HCl 50 mg/ Sodium (Chloride) 250 mls @ 25 mls/hr IV TITR [facility]; Protocol Last Admin: 11/06/21 10:38 Dose: 5 mg/hr, 25 mls/hr Lisinopril (Lisinopril 5 Mg Tab) 20 mg PO DAILY [facility] Metoprolol Tartrate (Metoprolol Tartrate 25 Mg Tab) 50 mg PO BID [facility] Morphine Sulfate (Morphine 4 Mg/1 Ml Inj) 1 mg IV Q8H PRN PRN Reason: Pain , Severe (7-10) Oxycodone/Acetaminophen (Oxycodone /Acetaminophen 5-325mg Tab) 1 tab PO Q16H PRN PRN Reason: Pain, Moderate (4-6) Sodium Chloride (Sodium Chloride 0.9% 10 Ml Flush Syringe) 10 ml IV BID [facility] Stop: 11/10/21 21:59 Last Admin: 11/06/21 10:37 Dose: 10 ml Sodium Chloride (Sodium Chloride 0.9% 10 Ml Flush Syringe) 10 ml IV PRN PRN PRN Reason: LINE FLUSH Stop: 11/10/21 17:24 Review of Systems All systems: negative Exam - Vital Signs Vital signs: Vital Signs Temp Pulse Resp BP Pulse Ox 98.7 F 85 18 240/140 99 11/05/21 12:39 11/05/21 12:39 11/05/21 12:39 11/05/21 12:39 11/05/21 12:39 Results - Lab Results 11/05/21 13:26 11/06/21 03:45 Most recent lab results Calcium 8.9 mg/dL (8.4-10.2) 11/06/21 03:45 Magnesium 2.20 mg/dL (1.7-2.3) 11/05/21 19:14 Assessment and Plan 1. Acute kidney injury: Suspect Vasomotor ANSHU. Most likely baseline CKD. Urine studies and Renal US ordered. Monitor renal function. Creatinine level improving. Avoid nephrotoxic agents. Meds dosage based on GFR. 2. FEN: On IV Lasix. Replete lytes as needed. Monitor lytes and volume status. 3. Acute hypoxic respiratory failure, POA: 2/2 CHF. Supplemental O2. Monitor. 4. Hypertensive Emergency, POA: Adjust BP meds. Monitor. 5. Decompensated HFrEF: Echo 11/05/2021: Severe global hypokinesis of LV. LVEF 20 to 25%. Transmitral Doppler flow pattern suggests impaired relaxation. Right ventricle is dilated. Right ventricle is hypokinetic. Right atrium is dilated. Followed by Cards. 6. ALVERTO. 7. Elevated LFT: Trend. Subjective: Patient was seen and examined at the bedside. Examination: General appearance: well-developed, morbidly obese, appears stated age, no distress HEENT: atraumatic, no icterus Neck: trachea midline Respiratory: diminished breath sounds Heart: S1S2, regular, no murmur Abdomen: soft, bowel sounds heard, NT Integumentary: no obvious rash Neurologic: AO, moving extremities Ext: b/l LE edema
[2021-11-06] MEDS: METOPROLOL TARTRATE 50 MG TAB PO SCH ×2 (12:06→21:46)
--- NOTE | 2021-11-06 13:09 | Electrocardiograph Report ---
[facility] Test Date: 2021-11-05 Test Time: 12:57:23 Pat Name: SELINA HARPER Department: Room: [place] [address] Gender: M Child Attendant: MENG : 1975 Requested By: HARRIS FOWLER Order Number: [id number] Reading MD: Aftab Reynolds Measurements Intervals [place] Rate: 85 P: 18 [place]: 192 QRS: 2 QRSD: 93 T: 127 QT: 418 QTc: 498 Interpretive Statements Sinus rhythm Left atrial enlargement Left ventricular hypertrophy Nonspecific T abnormalities, lateral leads No previous ECG available for comparison Electronically Signed On 11-06-2021 13:09:42 EDT by Aftab Reynolds
--- NOTE | 2021-11-06 13:42 | Consultation ---
History of Present Illness Consult date: 11/06/21 Requesting physician: GENI HERNANDEZ Consult reason: congestive heart failure History of present illness: Patient is a 46-year-old male with no known past medical history who presented to the ED yesterday after being sent from his outpatient [place] clinic with blood pressures of 257/159. Patient reports that he has not seen any healthcare providers since he was like 6 years old and that over the last several months he has been developing lower extremity edema. However he reports in the last 10 days his symptoms have gotten significantly worse reporting orthopnea, PND, dyspnea on exertion. He reports that he is also noticed swelling on his abdomen. In the ED patient was found to be in hypertensive emergency and started on Lasix and nicardipine drip. Patient was also found to have elevated BNP and elevated creatinine. At time of interview patient denies chest pain, nausea, vomiting, diaphoresis, headaches. Patient is previously unknown to our practice. Cardiology is consulted for CHF Past History Past Medical History: other (See HPI) Past Surgical History: No surgical history, Other (Reviewed) Social history: , lives with family. denies: smoking, alcohol abuse, prescription drug abuse Family history: diabetes, hypertension Medications and Allergies Allergies Allergy/AdvReac Type Severity Reaction Status Date / Time No Known Allergies Allergy Verified 11/05/21 12:44 Active Meds: Active Medications Acetaminophen (Acetaminophen 325 Mg Tab) 650 mg PO Q6H PRN PRN Reason: Pain MILD(1-3)/Fever >100.5/COLUNGA Albuterol (Albuterol 2.5 Mg/3 Ml Nebu) 2.5 mg IH Q3HRT PRN PRN Reason: Shortness Of Breath Furosemide (Furosemide 40 Mg/4 Ml Inj) 40 mg IV BID@0600,1800 [facility] Last Admin: 11/06/21 10:37 Dose: 40 mg Nicardipine HCl 50 mg/ Sodium (Chloride) 250 mls @ 25 mls/hr IV TITR [facility]; Protocol Last Admin: 11/06/21 10:38 Dose: 5 mg/hr, 25 mls/hr Lisinopril (Lisinopril 20 Mg Tab) 20 mg PO DAILY [facility] Metoprolol Tartrate (Metoprolol Tartrate 50 Mg Tab) 50 mg PO BID [facility] Last Admin: 11/06/21 12:06 Dose: 50 mg Morphine Sulfate (Morphine 4 Mg/1 Ml Inj) 1 mg IV Q8H PRN PRN Reason: Pain , Severe (7-10) Oxycodone/Acetaminophen (Oxycodone /Acetaminophen 5-325mg Tab) 1 tab PO Q16H PRN PRN Reason: Pain, Moderate (4-6) Sodium Chloride (Sodium Chloride 0.9% 10 Ml Flush Syringe) 10 ml IV BID NORMA Stop: 11/10/21 21:59 Last Admin: 11/06/21 10:37 Dose: 10 ml Sodium Chloride (Sodium Chloride 0.9% 10 Ml Flush Syringe) 10 ml IV PRN PRN PRN Reason: LINE FLUSH Stop: 11/10/21 17:24 Review of Systems Constitutional: no weight loss, no weight gain, no fever, no chills, no sweats Ears, nose, mouth and throat: no sinus pressure, no sinus pain Cardiovascular: orthopnea, shortness of breath, dyspnea on exertion, paroxysmal nocturnal dyspnea, leg edema, no chest pain Respiratory: shortness of breath, dyspnea on exertion Gastrointestinal: no abdominal pain, no nausea, no vomiting Musculoskeletal: no neck stiffness, no neck pain Integumentary: no rash, no pruritis, no redness Neurological: no head injury, no transient paralysis Psychiatric: no anxiety, no memory loss Endocrine: no cold intolerance, no heat intolerance Hematologic/Lymphatic: no easy bruising, no easy bleeding Physical Examination Vital Signs Temp Pulse Resp BP Pulse Ox 98.7 F 85 18 240/140 99 11/05/21 12:39 11/05/21 12:39 11/05/21 12:39 11/05/21 12:39 11/05/21 12:39 General appearance: no acute distress Neck: Positive: trachea midline Cardiac: Positive: Reg Rate and Rhythm Lungs: Positive: Normal Breath Sounds Neuro: Positive: Grossly Intact Abdomen: Positive: Soft, Distended Skin: Negative: Rash, Suspicious Lesions, Ulceration Extremities: Present: upper extr. pulses, +3 Edema Results 11/05/21 13:26 11/06/21 03:45 Cardiac Enzymes 11/05/21 Range/Units 13:26 AST 49 H (5-40) units/L Coagulation 11/05/21 Range/Units 13:26 PT 18.9 H (12.2-14.9) Sec. INR 1.41 H (0.87-1.13) APTT 37.1 H (24.2-36.6) Sec. CBC 11/05/21 Range/Units 13:26 WBC 10.4 (4.5-11.0) K/mm3 RBC 5.28 H (3.65-5.03) M/mm3 Hgb 14.9 (11.8-15.2) gm/dl Hct 46.2 H (35.5-45.6) % Plt Count 266 (140-440) K/mm3 Lymph # (Auto) 2.3 (1.2-5.4) K/mm3 [place] # (Auto) 0.6 (0.0-0.8) K/mm3 Eos # (Auto) 0.1 (0.0-0.4) K/mm3 Baso # (Auto) 0.1 (0.0-0.1) K/mm3 Comprehensive Metabolic Panel 11/05/21 11/06/21 Range/Units 13:26 03:45 Sodium 144 144 (137-145) mmol/L Potassium 3.9 3.9 (3.6-5.0) mmol/L Chloride 105.9 100.0 (98-107) mmol/L Carbon Dioxide 26 28 (22-30) mmol/L BUN 28 H 24 H (9-20) mg/dL Creatinine 1.9 H 1.5 H (0.8-1.3) mg/dL Glucose 110 H 97 (75-100) mg/dL Calcium 9.2 8.9 (8.4-10.2) mg/dL AST 49 H (5-40) units/L ALT 103 H (7-56) units/L Alkaline Phosphatase 83 (35-129) units/L Total Protein 6.4 (6.3-8.2) g/dL Albumin 3.8 L (3.9-5) g/dL - Imaging and Cardiology Echo: report reviewed EKG interpretations - Telemetry EKG Rhythm: Sinus Rhythm - EKG Sinus rhythms and dysrhythmias: sinus rhythm Chamber hypertrophy or enlargement: left ventricular hypertro Repolarization changes or abnormalities: nonspecific abnormality, ST segment, and/or T wave Assessment and Plan Patient is a 46-year-old male with no known past medical history who presented to the ED yesterday after being sent from his outpatient [place] clinic with blood pressures of 257/159 and volume overload Hypertensive emergency Acute HFrEF ANSHU-nephrology follow Obesity Echo 11/05/2021-technically difficult study. Severe global hypokinesis of LV. LVEF 20 to 25%. Transmitral Doppler flow pattern suggests impaired relaxation. Right ventricle is dilated. Right ventricle is hypokinetic. Right atrium is dilated. No pericardial effusion Plan: EKG shows sinus rhythm 85 LVH and nonspecific T abnormalities. No acute ischemic changes. Troponins negative x3. Patient denies any complaints of chest pain AMI ruled out BNP noted to be elevated and patient has bilateral lower extremity pitting edema. Agree with Lasix 40 mg IV twice daily Strict I&O's, daily weights, repeat BMP in the a.m. close monitoring of renal function Patient remains hypertensive and is currently on Cardene drip. Stop nifedipine Will increase to metoprolol 50 mg p.o. twice daily Discussed with nephrology okay to increase lisinopril to 20 mg p.o. daily baylee augustin Discussed with both patient and spouse who was at bedside importance of fluid restrictions, diet restrictions, and medication compliance. Discussed plan of care with patient and spouse. Both verbalized understanding and acknowledged Patient seen in conjunction with Dr. Ferreira who agrees with this plan of care - Patient Problems (1) Hypertensive emergency Current Visit: Yes Status: Acute (2) New onset of congestive heart failure Current Visit: Yes Status: Acute (3) Obesity Current Visit: Yes Status: Acute (4) Acute renal insufficiency Current Visit: Yes Status: Acute (5) Obesity hypoventilation syndrome Current Visit: Yes Status: Acute (6) Acute kidney injury (ANSHU) with acute tubular necrosis (ATN) Current Visit: Yes Status: Acute
[2021-11-07] MEDS: FUROSEMIDE 40 MG/4 ML INJ IV SCH ×2 (06:00→18:24)
[2021-11-07 06:08] LABS: Hematocrit 45.9 % (35.5-45.6); Hemoglobin 14.7 gm/dl (11.8-15.2); Mean Corpuscular HGB Conc 32 % (32-34); Mean Corpuscular Volume 87 fl (84-94); Platelet Count 275 K/mm3 (140-440); Red Blood Count 5.27 M/mm3 (3.65-5.03); Red Cell Distribution Width 17.4 % (13.2-15.2)
[2021-11-07 06:25] LABS: Alanine Aminotransferase 86 units/L (7-56); Albumin 3.9 g/dL (3.9-5); BUN/Creatinine Ratio 14; Blood Urea Nitrogen 18 mg/dL (9-20); Chol/HDL Ratio 5.25 %; HDL Cholesterol 32 mg/dL (40-59); Hemolysis Index 6; LDL Cholesterol,Direct 120 mg/dL (50-130)
[2021-11-07] MEDS ORDERED: METOPROLOL TARTRATE 50 MG TAB PO SCH (07:38)
--- NOTE | 2021-11-07 07:42 | Progress Note ---
Assessment and Plan Assessment and plan: 47 YO Male with Obesity Hypoventilation Syndrome, HTN presents ED for evaluation. Patient reports it is hard to breathe and my legs are swollen. Patient states that over the past 2 weeks he has experienced shortness of breath, decreased exercise tolerance, dyspnea on exertion, dyspnea at rest, leg swelling, orthopnea, paroxysmal nocturnal dyspnea, 10 pound unintentional weight gain, and shortness of breath with worsening symptoms over the same timeframe. Patient was seen and evaluated at the [place] outpatient clinic today and was found to have an elevated blood pressure and a pulse oximetry of 85% on room air. EMS was notified and upon arrival the patient was found to be in distress and subsequent transported to [facility] for further care and evaluation of the aforementioned symptoms. The patient was seen and evaluated in the emergency department. All lab and imaging studies reviewed. Patient was found to have a blood pressure 219-247 mmHg / 140-157 mmHg which is consistent with hypertensive emergency as well as clinical symptoms consistent with CHF decompensation, as well as acute kidney injury. Patient initiated on nitro drip and admitted to IMCU due to increased risk of worsening symptoms and for medical stabilization. Patient also initiated on CHF protocol. Patient treated with diuretic therapy in the emergency department with improvement in symptoms and normalization of pulse oximetry. Patient denies fever, chills, chest pain, palpitation, adductive cough, skin rash, recent contact, or known exposure to COVID-19. No prior admission for review. No medication listed at time of admission for reconciliation. Advanced care planning conducted in ED. 11/07: Patient was hypotensive overnight as a result beta-leola has been decreased to 25 mg twice daily. Renal function has also improved. Unfortunately I do not have an accurate I's and O's. Will discuss with ca rdiology today if any ischemic work-up will be done as patient is noted to have an ejection fraction on echocardiogram done 11/05/2021-technically difficult study. Severe global hypokinesis of LV. LVEF 20 to 25%. Transmitral Doppler flow pattern suggests impaired relaxation. Right ventricle is dilated. Right ventricle is hypokinetic. Right atrium is dilated. No pericardial effusion In the meantime we will continue with Lasix 40 mg IV twice daily, lisinopril of 20 mg p.o. daily Strict I&O's, daily weights, Continue education on importance of fluid restrictions, diet restrictions, and medication compliance. We will try to further diuresis today and anticipate discharge in the next 24 hours if okay with cardiology Acute hypoxic respiratory [id number] orthopenia still persist Hypertensive emergency-resolved Acute Systolic Heart failure NYHA 3 ANSHU with vasomotor nephropathy-resolved Secondary Coagulopathy Hypokalemia ALVERTO Elevated LFT MORBID OBESITY Non Complaint Has not seen a doctor since he was 6years old until yesterday Has been diagnosed with sleep apnea since college Falls asleep during the day time for the last month Orthopena for the last 10 days Leg swelling for the last 6 weeks Continue with goal-directed medical therapy. Had initially started the patient on Procardia but per cardiology adjusted beta- leola and KOBE inhibitor instead. We will monitor renal function. Dietitian consultation Acurate I/O Cardene drip discontinued. Nephrology consult input noted Cardiology consult input noted Advance care planning discussion had with the patient maintains full code. Plan of care discussed in detail Preventive care discussion also had with the patient on management of congestive heart failure in addition to obstructive sleep apnea and the need to have his clinical sleep study on discharge. Weight loss counseling also provided for 15 minutes. Continue IMCU admission till BP stablized History Interval history: Patient seen and examined admitted with congestive heart failure symptoms. Blood pressure improved replaced with diuresis still with orthopnea Hospitalist Physical - Physical exam Narrative exam: VITAL SIGNS: Reviewed. GENERAL: The patient appears normally developed, morbidly obese vital signs as documented. HEAD: No signs of head trauma. EYES: Pupils are equal. Extraocular motions intact. EARS: Hearing grossly intact. MOUTH: Oropharynx is normal. NECK: No adenopathy, no JVD. CHEST: Chest with fine rales at the bases breath sounds bilaterally. No wheezes. CARDIAC: Regular rate and rhythm. S1 and S2, without murmurs, gallops, or rubs. VASCULAR: +2 pitting edema. Peripheral pulses normal and equal in all extremities. ABDOMEN: Soft, non tender and non distended. No rebound or guarding, and no masses palpated. Bowel Sounds normal. MUSCULOSKELETAL: Good range of motion of all major joints. Extremities without clubbing, cyanosis. +2 pitting edema bilaterally. NEUROLOGIC EXAM: Alert and oriented x 3 No focal sensory or strength deficits. Speech normal. Follows commands. PSYCHIATRIC: Mood normal. SKIN: detail exam as documented in skin assessment - Constitutional Vitals: Temp Pulse Resp BP Pulse Ox 98.2 F 84 20 97/62 96 11/06/21 19:52 11/06/21 22:00 11/07/21 01:06 11/07/21 04:30 11/07/21 04:30 General appearance: Present: mild distress, obese HEART Score - HEART Score Troponin: Troponin T < 0.010 ng/mL (0.00-0.029) 11/05/21 19:14 Results - Labs CBC & Chem 7: 11/07/21 05:53 11/07/21 05:53 Labs: Laboratory Last Values WBC 10.2 K/mm3 (4.5-11.0) 11/07/21 05:53 RBC 5.27 M/mm3 (3.65-5.03) H 11/07/21 05:53 Hgb 14.7 gm/dl (11.8-15.2) 11/07/21 05:53 Hct 45.9 % (35.5-45.6) H 11/07/21 05:53 MCV 87 fl (84-94) 11/07/21 05:53 MCH 28 pg (28-32) 11/07/21 05:53 MCHC 32 % (32-34) 11/07/21 05:53 RDW 17.4 % (13.2-15.2) H 11/07/21 05:53 Plt Count 275 K/mm3 (140-440) 11/07/21 05:53 Lymph % (Auto) 22.6 % (13.4-35.0) 11/05/21 13:26 [place] % (Auto) 5.8 % (0.0-7.3) 11/05/21 13:26 Eos % (Auto) 0.9 % (0.0-4.3) 11/05/21 13:26 Baso % (Auto) 1.0 % (0.0-1.8) 11/05/21 13:26 Lymph # (Auto) 2.3 K/mm3 (1.2-5.4) 11/05/21 13:26 [place] # (Auto) 0.6 K/mm3 (0.0-0.8) 11/05/21 13:26 Eos # (Auto) 0.1 K/mm3 (0.0-0.4) 11/05/21 13:26 Baso # (Auto) 0.1 K/mm3 (0.0-0.1) 11/05/21 13:26 Seg Neutrophils % 69.7 % (40.0-70.0) 11/05/21 13:26 Seg Neutrophils # 7.2 K/mm3 (1.8-7.7) 11/05/21 13:26 PT 18.9 Sec. (12.2-14.9) H 11/05/21 13:26 INR 1.41 (0.87-1.13) H 11/05/21 13:26 APTT 37.1 Sec. (24.2-36.6) H 11/05/21 13:26 D-Dimer 378.20 ng/mlDDU (0-234) H 11/05/21 13:26 Sodium 143 mmol/L (137-145) 11/07/21 05:53 Potassium 3.4 mmol/L (3.6-5.0) L 11/07/21 05:53 Chloride 100.7 mmol/L (98-107) 11/07/21 05:53 Carbon Dioxide 32 mmol/L (22-30) H 11/07/21 05:53 Anion Gap 14 mmol/L 11/07/21 05:53 BUN 18 mg/dL (9-20) 11/07/21 05:53 Creatinine 1.3 mg/dL (0.8-1.3) 11/07/21 05:53 Estimated GFR > 60 ml/min 11/07/21 05:53 BUN/Creatinine Ratio 14 % 11/07/21 05:53 Glucose 105 mg/dL (75-100) H 11/07/21 05:53 Calcium 9.0 mg/dL (8.4-10.2) 11/07/21 05:53 Magnesium 2.20 mg/dL (1.7-2.3) 11/05/21 19:14 Total Bilirubin 2.00 mg/dL (0.1-1.2) H 11/07/21 05:53 AST 38 units/L (5-40) 11/07/21 05:53 ALT 86 units/L (7-56) H 11/07/21 05:53 Alkaline Phosphatase 80 units/L (35-129) 11/07/21 05:53 Troponin T < 0.010 ng/mL (0.00-0.029) 11/05/21 19:14 NT-Pro-B Natriuret Pep 7394 pg/mL (0-450) H 11/05/21 15:35 Total Protein 6.0 g/dL (6.3-8.2) L 11/07/21 05:53 Albumin 3.9 g/dL (3.9-5) 11/07/21 05:53 Albumin/Globulin Ratio 1.9 % 11/07/21 05:53 Triglycerides 90 mg/dL (2-149) 11/07/21 05:53 Cholesterol 168 mg/dL (50-199) 11/07/21 05:53 LDL Cholesterol Direct 120 mg/dL (50-130) 11/07/21 05:53 HDL Cholesterol 32 mg/dL (40-59) L 11/07/21 05:53 Cholesterol/HDL Ratio 5.25 % 11/07/21 05:53 TSH 3.080 mlU/mL (0.270-4.200) 11/05/21 19:14 Free T4 1.41 ng/dL (0.76-1.46) 11/05/21 19:14 Umaña/IV: Voiding Method Toilet Active Medications - Current Medications Current Medications: Generic Name Dose Route Start Last Admin Trade Name Freq PRN Reason Stop Dose Admin Acetaminophen 650 mg 11/05/21 18:00 Acetaminophen 325 Mg Tab PO Q6H PRN Pain MILD(1-3)/Fever >100.5/COLUNGA Albuterol 2.5 mg 11/05/21 18:00 Albuterol 2.5 Mg/3 Ml Nebu IH Q3HRT PRN Shortness Of Breath Furosemide 40 mg 11/06/21 08:00 11/07/21 06:00 Furosemide 40 Mg/4 Ml Inj IV 40 mg BID@0600,1800 NORMA Administration Lisinopril 20 mg 11/07/21 11:00 Lisinopril 20 Mg Tab PO DAILY NORMA Metoprolol Tartrate 25 mg 11/07/21 07:38 Metoprolol Tartrate 50 Mg Tab PO BID NORMA Morphine Sulfate 1 mg 11/05/21 18:00 Morphine 4 Mg/1 Ml Inj IV Q8H PRN Pain , Severe (7-10) Oxycodone/Acetaminophen 1 tab 11/05/21 17:25 Oxycodone /Acetaminophen 5-325mg Tab PO Q16H PRN Pain, Moderate (4-6) Sodium Chloride 10 ml 11/05/21 22:00 11/06/21 21:46 Sodium Chloride 0.9% 10 Ml Flush Syringe IV 11/10/21 21:59 10 ml BID NORMA Administration Sodium Chloride 10 ml 11/05/21 17:25 Sodium Chloride 0.9% 10 Ml Flush Syringe IV 11/10/21 17:24 PRN PRN LINE FLUSH
[2021-11-07] MEDS ORDERED: POTASSIUM CHLORIDE ER 20 MEQ TAB PO SCH (08:00)
--- NOTE | 2021-11-07 08:08 | Progress Note ---
Assessment and Plan 1. Acute kidney injury: Suspect Vasomotor ANSHU. Renal US negative. Urine studies ordered. Monitor renal function. Creatinine level improving. Avoid nephrotoxic agents. Meds dosage based on GFR. 2. FEN: On IV Lasix. Replete lytes as needed. Monitor lytes and volume status. 3. Acute hypoxic respiratory failure, POA: 2/2 CHF. Supplemental O2. Monitor. 4. Hypertensive Emergency, POA: BP is on the lowside. Lisinopril stopped. Adjust BP meds. Monitor. 5. Decompensated HFrEF: Echo 11/05/2021: Severe global hypokinesis of LV. LVEF 20 to 25%. Transmitral Doppler flow pattern suggests impaired relaxation. Right ventricle is dilated. Right ventricle is hypokinetic. Right atrium is dilated. Followed by Cards. 6. ALVERTO. 7. Elevated LFT: Trend. Subjective: Patient was seen and examined at the bedside. Doing ok. Examination: General appearance: well-developed, morbidly obese, appears stated age, no distress HEENT: atraumatic, no icterus Neck: trachea midline Respiratory: diminished breath sounds Heart: S1S2, regular, no murmur Abdomen: soft, bowel sounds heard, NT Integumentary: no obvious rash Neurologic: AO, moving extremities Ext: b/l LE edema Subjective Date of service: 11/07/21 Objective - Vital Signs Vital signs: Vital Signs - 12hr 11/06/21 11/06/21 11/06/21 20:41 20:50 21:00 Pulse Rate Respiratory Rate Blood Pressure 142/101 126/78 126/78 O2 Sat by Pulse 100 95 96 Oximetry 11/06/21 11/06/21 11/06/21 21:10 21:20 21:30 Pulse Rate Respiratory Rate Blood Pressure 126/78 142/101 126/78 O2 Sat by Pulse 97 98 97 Oximetry 11/06/21 11/06/21 11/06/21 21:42 21:50 22:00 Pulse Rate 84 Respiratory Rate Blood Pressure 126/78 125/80 125/80 O2 Sat by Pulse 100 97 98 Oximetry 11/06/21 11/06/21 11/06/21 22:10 22:20 22:30 Pulse Rate Respiratory Rate Blood Pressure 125/80 125/80 125/80 O2 Sat by Pulse 100 97 99 Oximetry 11/06/21 11/06/21 11/06/21 22:40 22:50 23:00 Pulse Rate Respiratory Rate Blood Pressure 125/80 104/62 125/80 O2 Sat by Pulse 99 98 98 Oximetry 11/06/21 11/06/21 11/06/21 23:10 23:20 23:30 Pulse Rate Respiratory Rate Blood Pressure 125/80 125/80 125/80 O2 Sat by Pulse 99 96 96 Oximetry 11/06/21 11/06/21 11/07/21 23:40 23:50 00:00 Pulse Rate Respiratory Rate Blood Pressure 125/80 100/64 100/64 O2 Sat by Pulse 95 97 100 Oximetry 11/07/21 11/07/21 11/07/21 00:10 00:20 00:30 Pulse Rate Respiratory Rate Blood Pressure 100/64 100/64 100/64 O2 Sat by Pulse 100 97 96 Oximetry 11/07/21 11/07/21 11/07/21 00:40 00:50 01:00 Pulse Rate Respiratory Rate Blood Pressure 100/64 O2 Sat by Pulse 96 97 95 Oximetry 11/07/21 11/07/21 11/07/21 01:06 01:10 01:20 Pulse Rate Respiratory 20 Rate Blood Pressure O2 Sat by Pulse 98 96 97 Oximetry 11/07/21 11/07/21 11/07/21 01:30 01:40 01:50 Pulse Rate Respiratory Rate Blood Pressure 94/60 O2 Sat by Pulse 95 96 97 Oximetry 11/07/21 11/07/21 11/07/21 02:00 02:10 02:20 Pulse Rate Respiratory Rate Blood Pressure 94/60 94/60 94/60 O2 Sat by Pulse 95 94 95 Oximetry 11/07/21 11/07/21 11/07/21 02:30 02:40 02:50 Pulse Rate Respiratory Rate Blood Pressure 94/60 94/60 104/57 O2 Sat by Pulse 94 94 97 Oximetry 11/07/21 11/07/21 11/07/21 03:00 03:10 03:20 Pulse Rate Respiratory Rate Blood Pressure 104/57 104/57 104/57 O2 Sat by Pulse 97 96 97 Oximetry 11/07/21 11/07/21 11/07/21 03:30 03:40 03:50 Pulse Rate Respiratory Rate Blood Pressure 104/57 104/57 97/62 O2 Sat by Pulse 96 95 97 Oximetry 11/07/21 11/07/21 11/07/21 04:00 04:10 04:20 Pulse Rate Respiratory Rate Blood Pressure 97/62 97/62 97/62 O2 Sat by Pulse 95 98 94 Oximetry 11/07/21 04:30 Pulse Rate Respiratory Rate Blood Pressure 97/62 O2 Sat by Pulse 96 Oximetry - Lab 11/07/21 05:53 11/07/21 05:53 Most recent lab results Calcium 9.0 mg/dL (8.4-10.2) 11/07/21 05:53 Magnesium 2.20 mg/dL (1.7-2.3) 11/05/21 19:14 Medications & Allergies - Medications Allergies/Adverse Reactions: Allergies No Known Allergies Allergy (Verified 11/05/21 12:44) Home Medications: Home Medications Medication Instructions Recorded Confirmed Last Taken Type No Known Home Medications [No 11/06/21 11/06/21 Unknown History Reported Home Medications] Active Medications: Generic Name Dose Route Start Last Admin Trade Name Freq PRN Reason Stop Dose Admin Acetaminophen 650 mg 11/05/21 18:00 Acetaminophen 325 Mg Tab PO Q6H PRN Pain MILD(1-3)/Fever >100.5/COLUNGA Albuterol 2.5 mg 11/05/21 18:00 Albuterol 2.5 Mg/3 Ml Nebu IH Q3HRT PRN Shortness Of Breath Furosemide 40 mg 11/06/21 08:00 11/07/21 06:00 Furosemide 40 Mg/4 Ml Inj IV 40 mg BID@0600,1800 [facility] Administration Lisinopril 20 mg 11/07/21 11:00 Lisinopril 20 Mg Tab PO DAILY [facility] Metoprolol Tartrate 25 mg 11/07/21 10:00 Metoprolol Tartrate 25 Mg Tab PO BID [facility] Morphine Sulfate 1 mg 11/05/21 18:00 Morphine 4 Mg/1 Ml Inj IV Q8H PRN Pain , Severe (7-10) Oxycodone/Acetaminophen 1 tab 11/05/21 17:25 Oxycodone /Acetaminophen 5-325mg Tab PO Q16H PRN Pain, Moderate (4-6) Potassium Chloride 40 meq 11/07/21 08:00 Potassium Chloride Er 20 Meq Tab PO 11/07/21 14:00 ONCE@0800 [facility] Sodium Chloride 10 ml 11/05/21 22:00 11/06/21 21:46 Sodium Chloride 0.9% 10 Ml Flush Syringe IV 11/10/21 21:59 10 ml BID NORMA Administration Sodium Chloride 10 ml 11/05/21 17:25 Sodium Chloride 0.9% 10 Ml Flush Syringe IV 11/10/21 17:24 PRN PRN LINE FLUSH
--- NOTE | 2021-11-07 10:06 | Ultrasound Report ---
ULTRASOUND RENAL INDICATION / CLINICAL INFORMATION: Acute renal failure.. COMPARISON: None available. FINDINGS: RIGHT KIDNEY: Length = 10.7 cm. - Echogenicity: Normal. - Parenchymal Thickness: Normal. - Hydronephrosis: None. - Cyst / Mass: None. - Stones: None seen. LEFT KIDNEY: Length = 10.7 cm. Suboptimally evaluated due to body habitus. - Echogenicity: Normal. - Parenchymal Thickness: Normal. - Hydronephrosis: None. - Cyst / Mass: None. - Stones: None seen. URINARY BLADDER: No significant abnormality. FREE FLUID: None. ADDITIONAL FINDINGS: None. IMPRESSION: No evidence of medical renal disease or hydronephrosis. Signer Name: Balwinder Neal MD Signed: 11/07/2021 10:01 AM Workstation Name: [email or web address]
[2021-11-07] MEDS: METOPROLOL TARTRATE 25 MG TAB PO SCH ×2 (10:42→21:13)
[2021-11-07] MEDS ORDERED: LISINOPRIL 20 MG TAB PO SCH (11:00)
--- NOTE | 2021-11-07 11:37 | Progress Note ---
Assessment and Plan Patient is a 46-year-old male with no known past medical history who presented to the ED yesterday after being sent from his outpatient [place] [facility] with blood pressures of 257/159 and volume overload Hypertensive emergency Acute HFrEF ANSHU-nephrology follow Obesity Echo 11/05/2021-technically difficult study. Severe global hypokinesis of LV. LVEF 20 to 25%. Transmitral Doppler flow pattern suggests impaired relaxation. Right ventricle is dilated. Right ventricle is hypokinetic. Right atrium is dilated. No pericardial effusion Plan: Patient became hypotensive overnight on Cardene drip. Cardene drip and lisinopril has been stopped Decrease to metoprolol 25 mg p.o. twice daily Will initiate further GDMT when BP stable Initiate aspirin and statin Patient still has bilateral lower extremity pitting edema. Continue diuresis with Lasix 40 mg IV twice daily Strict I&O's, daily weights, repeat BMP in the a.m. close monitoring of renal function Will plan for ischemic eval and patient is euvolemic Discussed with both patient and spouse who was at bedside importance of fluid restrictions, diet restrictions, and medication compliance. Discussed plan of care with patient and spouse. Both verbalized understanding and acknowledged Patient seen in conjunction with Dr. Ferreira who agrees with this plan of care - Patient Problems (1) Hypertensive emergency Current Visit: Yes Status: Acute (2) New onset of congestive heart failure Current Visit: Yes Status: Acute (3) Obesity Current Visit: Yes Status: Acute (4) Acute renal insufficiency Current Visit: Yes Status: Acute (5) Obesity hypoventilation syndrome Current Visit: Yes Status: Acute (6) Acute kidney injury (ANSHU) with acute tubular necrosis (ATN) Current Visit: Yes Status: Acute Subjective Date of service: 11/07/21 Principal diagnosis: Hypertensive emergency, acute HFrEF Interval history: Patient resting in bed in no acute distress. Patient reports feeling better this a.m. and reports good urine output Sinus 70s on monitor with no events Objective Vital Signs Temp Pulse Pulse Resp BP Pulse Ox 11/07/21 10:42 72 11/07/21 08:30 124/77 100 11/07/21 08:20 124/77 100 11/07/21 08:10 124/77 98 11/07/21 08:00 124/77 100 11/07/21 07:50 124/77 99 08/18/22 07:40 105/75 99 18 07:30 105/75 100 [id number] 07:20 105/75 99 0818 07:10 105/75 96 11/07/21 07:00 105/75 97 11/07/21 06:50 105/75 98 11/07/21 06:40 93/71 98 18 06:30 93/71 97 18 06:20 93/71 96 11/07/21 06:10 93/71 95 11/07/21 06:00 93/71 96 11/07/21 05:50 93/71 93 11/07/21 05:40 84/47 96 11/07/21 05:30 84/47 97 11/07/21 05:20 84/47 97 11/07/21 05:10 84/47 98 11/07/21 05:00 84/47 96 11/07/21 04:50 84/47 95 11/07/21 04:40 97/62 95 11/07/21 04:30 97/62 96 11/07/21 04:20 97/62 94 11/07/21 04:10 97/62 98 11/07/21 04:00 97/62 95 11/07/21 03:50 97/62 97 11/07/21 03:40 104/57 95 11/07/21 03:30 104/57 96 18 03:20 104/57 97 11/07/21 03:10 104/57 96 18 03:00 104/57 97 11/07/21 02:50 104/57 97 11/07/21 02:40 94/60 94 1822 02:30 94/60 94 18 02:20 94/60 95 1822 02:10 94/60 94 18 02:00 94/60 95 18 01:50 94/60 97 18 01:40 96 1822 01:30 95 1822 01:20 97 11/07/21 01:10 96 18 01:06 20 98 18 01:00 95 11/07/21 00:50 97 11/07/21 00:40 100/64 96 18 00:30 100/64 96 1822 00:20 100/64 97 1822 00:10 100/64 100 1822 00:00 100/64 100 11/06/21 23:50 100/64 97 11/06/21 23:40 125/80 95 11/06/21 23:30 125/80 96 11/06/21 23:20 125/80 96 11/06/21 23:10 125/80 99 11/06/21 23:00 125/80 98 11/06/21 22:50 104/62 98 11/06/21 22:40 125/80 99 11/06/21 22:30 125/80 99 11/06/21 22:20 125/80 97 11/06/21 22:10 125/80 100 11/06/21 22:00 84 125/80 98 11/06/21 21:50 125/80 97 11/06/21 21:42 126/78 100 11/06/21 21:30 126/78 97 11/06/21 21:20 142/101 98 11/06/21 21:10 126/78 97 11/06/21 21:00 126/78 96 11/06/21 20:50 126/78 95 11/06/21 20:41 142/101 100 11/06/21 20:00 20 142/101 98 11/06/21 19:52 98.2 F 84 18 145/107 94 11/06/21 19:44 142/101 11/06/21 19:00 136/96 11/06/21 18:30 78 13 166/82 94 11/06/21 18:20 75 18 166/82 95 11/06/21 18:10 80 21 166/82 93 11/06/21 18:00 91 H 13 166/82 96 11/06/21 17:50 79 27 H 166/82 95 11/06/21 17:40 81 11 L 166/82 94 11/06/21 17:30 76 16 166/82 92 11/06/21 17:20 80 16 166/82 95 11/06/21 17:10 84 13 96 11/06/21 17:00 82 19 172/87 96 11/06/21 16:50 85 12 172/87 95 11/06/21 16:44 94 08/17/22 16:30 143/83 99 11/06/21 16:20 143/83 95 11/06/21 16:10 143/83 98 11/06/21 16:00 85 20 143/83 98 11/06/21 15:00 156/93 93 11/06/21 14:00 156/93 97 11/06/21 13:00 153/86 76 L 11/06/21 12:00 165/103 100 - Physical Examination General: No Apparent Distress HEENT: Positive: PERRL, Normocephaly Neck: Positive: trachea midline Cardiac: Positive: Reg Rate and Rhythm Lungs: Positive: Normal Breath Sounds Neuro: Positive: Grossly Intact Abdomen: Positive: Soft, Distended Skin: Negative: Rash, Suspicious Lesions, Ulceration Extremities: Present: upper extr. pulses, +3 Edema - Labs and Meds Cardiac Enzymes 11/07/21 Range/Units 05:53 AST 38 (5-40) units/L Lipids 11/07/21 Range/Units 05:53 Triglycerides 90 (2-149) mg/dL Cholesterol 168 (50-199) mg/dL HDL Cholesterol 32 L (40-59) mg/dL Cholesterol/HDL Ratio 5.25 % CBC 11/07/21 Range/Units 05:53 WBC 10.2 (4.5-11.0) K/mm3 RBC 5.27 H (3.65-5.03) M/mm3 Hgb 14.7 (11.8-15.2) gm/dl Hct 45.9 H (35.5-45.6) % Plt Count 275 (140-440) K/mm3 Comprehensive Metabolic Panel 11/07/21 Range/Units 05:53 Sodium 143 (137-145) mmol/L Potassium 3.4 L (3.6-5.0) mmol/L Chloride 100.7 (98-107) mmol/L Carbon Dioxide 32 H (22-30) mmol/L BUN 18 (9-20) mg/dL Creatinine 1.3 (0.8-1.3) mg/dL Glucose 105 H (75-100) mg/dL Calcium 9.0 (8.4-10.2) mg/dL AST 38 (5-40) units/L ALT 86 H (7-56) units/L Alkaline Phosphatase 80 (35-129) units/L Total Protein 6.0 L (6.3-8.2) g/dL Albumin 3.9 (3.9-5) g/dL - Imaging and Cardiology Echo: report reviewed - Telemetry EKG Rhythm: Sinus Rhythm - EKG Sinus rhythms and dysrhythmias: sinus rhythm Chamber hypertrophy or enlargement: left ventricular hypertro Repolarization changes or abnormalities: nonspecific abnormality, ST segment, and/or T wave
[2021-11-08 05:36] LABS: BUN/Creatinine Ratio 13; Blood Urea Nitrogen 18 mg/dL (9-20); Calcium 9.2 mg/dL (8.4-10.2); Hemolysis Index 11
[2021-11-08] MEDS: FUROSEMIDE 40 MG/4 ML INJ IV SCH ×2 (06:31→21:38)
[2021-11-08] MEDS ORDERED: POTASSIUM CHLORIDE ER 20 MEQ TAB PO NR (09:19)
--- NOTE | 2021-11-08 09:19 | Progress Note ---
Assessment and Plan 1. Acute kidney injury: Suspect Vasomotor ANSHU. Renal US negative. Urine studies ordered. Monitor renal function. Creatinine level is better. Avoid nephrotoxic agents. Meds dosage based on GFR. 2. FEN: On IV Lasix. Replete lytes as needed. Monitor lytes and volume status. 3. Acute hypoxic respiratory failure, POA: 2/2 CHF. Supplemental O2. Monitor. 4. Hypertensive Emergency, POA: Lisinopril stopped due to ANSHU. Adjust BP meds. Monitor. 5. Decompensated HFrEF: Echo 11/05/2021: Severe global hypokinesis of LV. LVEF 20 to 25%. Transmitral Doppler flow pattern suggests impaired relaxation. Right ventricle is dilated. Right ventricle is hypokinetic. Right atrium is dilated. Followed by Cards. 6. ALVERTO. 7. Elevated LFT: Trend. Subjective: Patient was seen and examined at the bedside. Doing ok. at the bedside. Examination: General appearance: well-developed, morbidly obese, appears stated age, no distress HEENT: atraumatic, no icterus Neck: trachea midline Respiratory: diminished breath sounds Heart: S1S2, regular, no murmur Abdomen: soft, bowel sounds heard, NT Integumentary: no obvious rash Neurologic: AO, moving extremities Ext: 2+ b/l LE edema Subjective Date of service: 11/08/21 Principal diagnosis: Hypertensive emergency, acute HFrEF Objective - Vital Signs Vital signs: Vital Signs - 12hr 11/08/21 11/08/21 04:16 08:14 Temperature 98.6 F 98.5 F Pulse Rate 86 89 Respiratory 20 20 Rate Blood Pressure 196/115 196/110 O2 Sat by Pulse 91 94 Oximetry - Lab 11/07/21 05:53 11/08/21 04:10 Most recent lab results Calcium 9.2 mg/dL (8.4-10.2) 11/08/21 04:10 Magnesium 1.90 mg/dL (1.7-2.3) 11/08/21 04:10 Medications & Allergies - Medications Allergies/Adverse Reactions: Allergies No Known Allergies Allergy (Verified 11/05/21 12:44) Home Medications: Home Medications Medication Instructions Recorded Confirmed Last Taken Type No Known Home Medications [No 11/06/21 11/06/21 Unknown History Reported Home Medications] Active Medications: Generic Name Dose Route Start Last Admin Trade Name Freq PRN Reason Stop Dose Admin Acetaminophen 650 mg 11/05/21 18:00 Acetaminophen 325 Mg Tab PO Q6H PRN Pain MILD(1-3)/Fever >100.5/COLUNGA Albuterol 2.5 mg 11/05/21 18:00 Albuterol 2.5 Mg/3 Ml Nebu IH Q3HRT PRN Shortness Of Breath Aspirin 81 mg 11/08/21 10:00 Aspirin 81 Mg Tab Chew PO QDAY NORMA Atorvastatin Calcium 10 mg 11/07/21 22:00 11/07/21 21:13 Atorvastatin 10 Mg Tab PO 10 mg QHS NORMA Administration Furosemide 40 mg 11/09/21 10:00 Furosemide 40 Mg/4 Ml Inj IV DAILY NORMA Metoprolol Tartrate 25 mg 11/07/21 10:00 11/07/21 21:13 Metoprolol Tartrate 25 Mg Tab PO 25 mg BID NORMA Administration Morphine Sulfate 1 mg 11/05/21 18:00 Morphine 4 Mg/1 Ml Inj IV Q8H PRN Pain , Severe (7-10) Oxycodone/Acetaminophen 1 tab 11/05/21 17:25 Oxycodone /Acetaminophen 5-325mg Tab PO Q16H PRN Pain, Moderate (4-6) Sodium Chloride 10 ml 11/05/21 22:00 11/07/21 21:14 Sodium Chloride 0.9% 10 Ml Flush Syringe IV 11/10/21 21:59 10 ml BID NORMA Administration Sodium Chloride 10 ml 11/05/21 17:25 Sodium Chloride 0.9% 10 Ml Flush Syringe IV 11/10/21 17:24 PRN PRN LINE FLUSH
[2021-11-08] MEDS: ASPIRIN 81 MG TAB CHEW PO SCH (09:34)
[2021-11-08] MEDS: METOPROLOL TARTRATE 25 MG TAB PO SCH ×3 (09:34→21:37)
[2021-11-08] MEDS ORDERED: POTASSIUM CHLORIDE ER 20 MEQ TAB PO ONE (09:45)
[2021-11-08] MEDS ORDERED: SODIUM CHLORIDE 0.9% 500 ML 500 ML IV SCH (11:00)
--- NOTE | 2021-11-08 11:52 | Progress Note ---
Assessment and Plan Assessment and plan: 47 YO Male with Obesity Hypoventilation Syndrome, HTN presents ED for evaluation. Patient reports it is hard to breathe and my legs are swollen. Patient states that over the past 2 weeks he has experienced shortness of breath, decreased exercise tolerance, dyspnea on exertion, dyspnea at rest, leg swelling, orthopnea, paroxysmal nocturnal dyspnea, 10 pound unintentional weight gain, and shortness of breath with worsening symptoms over the same timeframe. Patient was seen and evaluated at the [place] outpatient clinic today and was found to have an elevated blood pressure and a pulse oximetry of 85% on room air. EMS was notified and upon arrival the patient was found to be in distress and subsequent transported to [facility] for further care and evaluation of the aforementioned symptoms. The patient was seen and evaluated in the emergency department. All lab and imaging studies reviewed. Patient was found to have a blood pressure 219-247 mmHg / 140-157 mmHg which is consistent with hypertensive emergency as well as clinical symptoms consistent with CHF decompensation, as well as acute kidney injury. Patient initiated on nitro drip and admitted to IMCU due to increased risk of worsening symptoms and for medical stabilization. Patient also initiated on CHF protocol. Patient treated with diuretic therapy in the emergency department with improvement in symptoms and normalization of pulse oximetry. Patient denies fever, chills, chest pain, palpitation, adductive cough, skin rash, recent contact, or known exposure to COVID-19. No prior admission for review. No medication listed at time of admission for reconciliation. Advanced care planning conducted in ED. 11/07: Patient was hypotensive overnight as a result beta-leola has been decreased to 25 mg twice daily. Renal function has also improved. Unfortunately I do not have an accurate I's and O's. Will discuss with ca rdiology today if any ischemic work-up will be done as patient is noted to have an ejection fraction on echocardiogram done 11/05/2021-technically difficult study. Severe global hypokinesis of LV. LVEF 20 to 25%. Transmitral Doppler flow pattern suggests impaired relaxation. Right ventricle is dilated. Right ventricle is hypokinetic. Right atrium is dilated. No pericardial effusion In the meantime we will continue with Lasix 40 mg IV twice daily, lisinopril of 20 mg p.o. daily Strict I&O's, daily weights, Continue education on importance of fluid restrictions, diet restrictions, and medication compliance. We will try to further diuresis today and anticipate discharge in the next 24 hours if okay with cardiology 11/08: Patient seen and examined once again with hypertensive urgency. Adjustments made to medications. Hydralazine added. Beta-leola increased. Patient also noted to have mild increase in creatinine as a result Lasix has been adjusted. We will continue inpatient monitoring to ensure adequate control blood pressure and fluid management. I have also discussed with her [place] physician group and their recommendation is that if the patient needs to continue in the hospital and if blood pressure is better controlled we will likely transfer out to one of the accepting facilities in a.m. Acute hypoxic respiratory leyghes-[id number] orthopenia still persist Hypertensive emergency Acute Systolic Heart failure NYHA 3 ANSHU with vasomotor nephropathy Secondary Coagulopathy Hypokalemia ALVERTO Elevated LFT MORBID OBESITY Non Complaint Has not seen a doctor since he was 6years old until yesterday Has been diagnosed with sleep apnea since college Falls asleep during the day time for the last month Orthopena for the last 10 days Leg swelling for the last 6 weeks Continue with goal-directed medical therapy. Had initially started the patient on Procardia but per cardiology adjusted beta- leola and KOBE inhibitor instead. We will monitor renal function. Dietitian consultation Acurate I/O Cardene drip discontinued. Nephrology consult input noted Cardiology consult input noted Advance care planning discussion had with the patient maintains full code. Plan of care discussed in detail Preventive care discussion also had with the patient on management of congestive heart failure in addition to obstructive sleep apnea and the need to have his clinical sleep study on discharge. Weight loss counseling also provided for 15 minutes. Continue IMCU admission till BP stablized History Interval history: Patient seen and examined admitted with congestive heart failure symptoms. Sitting up this morning. Blood pressure was again elevated. Denies any chest pain or headache. Hospitalist Physical - Physical exam Narrative exam: VITAL SIGNS: Reviewed. GENERAL: The patient appears normally developed, morbidly obese vital signs as documented. HEAD: No signs of head trauma. EYES: Pupils are equal. Extraocular motions intact. EARS: Hearing grossly intact. MOUTH: Oropharynx is normal. NECK: No adenopathy, no JVD. CHEST: Chest with fine rales at the bases breath sounds bilaterally. No wheezes. CARDIAC: Regular rate and rhythm. S1 and S2, without murmurs, gallops, or rubs. VASCULAR: +2 pitting edema. Peripheral pulses normal and equal in all extremities. ABDOMEN: Soft, non tender and non distended. No rebound or guarding, and no masses palpated. Bowel Sounds normal. MUSCULOSKELETAL: Good range of motion of all major joints. Extremities without clubbing, cyanosis. +2 pitting edema bilaterally. NEUROLOGIC EXAM: Alert and oriented x 3 No focal sensory or strength deficits. Speech normal. Follows commands. PSYCHIATRIC: Mood normal. SKIN: detail exam as documented in skin assessment - Constitutional Vitals: Temp Pulse Resp BP Pulse Ox 98.5 F 89 20 185/103 94 11/08/21 08:14 11/08/21 08:14 11/08/21 08:14 11/08/21 11:16 11/08/21 08:14 General appearance: Present: mild distress, obese HEART Score - HEART Score Troponin: Troponin T < 0.010 ng/mL (0.00-0.029) 11/05/21 19:14 Results - Labs CBC & Chem 7: 11/07/21 05:53 11/08/21 04:10 Labs: Laboratory Last Values WBC 10.2 K/mm3 (4.5-11.0) 11/07/21 05:53 RBC 5.27 M/mm3 (3.65-5.03) H 11/07/21 05:53 Hgb 14.7 gm/dl (11.8-15.2) 11/07/21 05:53 Hct 45.9 % (35.5-45.6) H 11/07/21 05:53 MCV 87 fl (84-94) 11/07/21 05:53 MCH 28 pg (28-32) 11/07/21 05:53 MCHC 32 % (32-34) 11/07/21 05:53 RDW 17.4 % (13.2-15.2) H 11/07/21 05:53 Plt Count 275 K/mm3 (140-440) 11/07/21 05:53 Lymph % (Auto) 22.6 % (13.4-35.0) 11/05/21 13:26 [place] % (Auto) 5.8 % (0.0-7.3) 11/05/21 13:26 Eos % (Auto) 0.9 % (0.0-4.3) 11/05/21 13:26 Baso % (Auto) 1.0 % (0.0-1.8) 11/05/21 13:26 Lymph # (Auto) 2.3 K/mm3 (1.2-5.4) 11/05/21 13:26 [place]aves # (Auto) 0.6 K/mm3 (0.0-0.8) 11/05/21 13:26 Eos # (Auto) 0.1 K/mm3 (0.0-0.4) 11/05/21 13:26 Baso # (Auto) 0.1 K/mm3 (0.0-0.1) 11/05/21 13:26 Seg Neutrophils % 69.7 % (40.0-70.0) 11/05/21 13: Seg Neutrophils # 7.2 K/mm3 (1.8-7.7) 11/05/21 13:26 PT 18.9 Sec. (12.2-14.9) H 11/05/21 13:26 INR 1.41 (0.87-1.13) H 11/05/21 13:26 APTT 37.1 Sec. (24.2-36.6) H 11/05/21 13:26 D-Dimer 378.20 ng/mlDDU (0-234) H 11/05/21 13:26 Sodium 140 mmol/L (137-145) 11/08/21 04:10 Potassium 3.3 mmol/L (3.6-5.0) L 11/08/21 04:10 Chloride 98.6 mmol/L (98-107) 11/08/21 04:10 Carbon Dioxide 32 mmol/L (22-30) H 11/08/21 04:10 Anion Gap 13 mmol/L 11/08/21 04:10 BUN 18 mg/dL (9-20) 11/08/21 04:10 Creatinine 1.4 mg/dL (0.8-1.3) H 11/08/21 04:10 Estimated GFR > 60 ml/min 11/08/21 04:10 BUN/Creatinine Ratio 13 % 11/08/21 04:10 Glucose 95 mg/dL (75-100) 11/08/21 04:10 POC Glucose 88 mg/dL (70-105) 11/07/21 21:31 Calcium 9.2 mg/dL (8.4-10.2) 11/08/21 04:10 Magnesium 1.90 mg/dL (1.7-2.3) 11/08/21 04:10 Total Bilirubin 2.00 mg/dL (0.1-1.2) H 11/07/21 05:53 AST 38 units/L (5-40) 11/07/21 05:53 ALT 86 units/L (7-56) H 11/07/21 05:53 Alkaline Phosphatase 80 units/L (35-129) 11/07/21 05:53 Troponin T < 0.010 ng/mL (0.00-0.029) 11/05/21 19:14 NT-Pro-B Natriuret Pep 7394 pg/mL (0-450) H 11/05/21 15:35 Total Protein 6.0 g/dL (6.3-8.2) L 11/07/21 05:53 Albumin 3.9 g/dL (3.9-5) 11/07/21 05:53 Albumin/Globulin Ratio 1.9 % 11/07/21 05:53 Triglycerides 90 mg/dL (2-149) 11/07/21 05:53 Cholesterol 168 mg/dL (50-199) 11/07/21 05:53 LDL Cholesterol Direct 120 mg/dL (50-130) 11/07/21 05:53 HDL Cholesterol 32 mg/dL (40-59) L 11/07/21 05:53 Cholesterol/HDL Ratio 5.25 % 11/07/21 05:53 TSH 3.080 mlU/mL (0.270-4.200) 11/05/21 19:14 Free T4 1.41 ng/dL (0.76-1.46) 11/05/21 19:14 Umaña/IV: Voiding Method Toilet Active Medications - Current Medications Current Medications: Generic Name Dose Route Start Last Admin Trade Name Freq PRN Reason Stop Dose Admin Acetaminophen 650 mg 11/05/21 18:00 Acetaminophen 325 Mg Tab PO Q6H PRN Pain MILD(1-3)/Fever >100.5/COLUNGA Albuterol 2.5 mg 11/05/21 18:00 Albuterol 2.5 Mg/3 Ml Nebu IH Q3HRT PRN Shortness Of Breath Aspirin 81 mg 11/08/21 10:00 11/08/21 09:34 Aspirin 81 Mg Tab Chew PO 81 mg QDAY NORMA Administration Atorvastatin Calcium 10 mg 11/07/21 22:00 11/07/21 21:13 Atorvastatin 10 Mg Tab PO 10 mg QHS NORMA Administration Furosemide 20 mg 11/08/21 22:00 Furosemide 40 Mg/4 Ml Inj IV BID NORMA Hydralazine HCl 50 mg 11/08/21 11:30 Hydralazine 25 Mg Tab PO Q8HR [facility] Sodium Chloride 500 mls @ 50 mls/hr 11/08/21 11:00 Nacl 0.9% 500 Ml IV 11/08/21 20:59 DIRECT [facility] Metoprolol Tartrate 50 mg 11/08/21 11:00 Metoprolol Tartrate 25 Mg Tab PO BID [facility] Morphine Sulfate 1 mg 11/05/21 18:00 Morphine 4 Mg/1 Ml Inj IV Q8H PRN Pain , Severe (7-10) Oxycodone/Acetaminophen 1 tab 11/05/21 17:25 Oxycodone /Acetaminophen 5-325mg Tab PO Q16H PRN Pain, Moderate (4-6) Potassium Chloride 40 meq 11/08/21 09:19 Potassium Chloride Er 20 Meq Tab PO 11/08/21 14:00 ONCE NR Sodium Chloride 10 ml 11/05/21 22:00 11/07/21 21:14 Sodium Chloride 0.9% 10 Ml Flush Syringe IV 11/10/21 21:59 10 ml BID NORMA Administration Sodium Chloride 10 ml 11/05/21 17:25 Sodium Chloride 0.9% 10 Ml Flush Syringe IV 11/10/21 17:24 PRN PRN LINE FLUSH Nutrition/Malnutrition Assess - Dietary Evaluation Nutrition/Malnutrition Findings: Nutrition Notes Start: 11/07/21 15:44 Freq: Status: Active Protocol: Document 11/07/21 15:44 NOE (Rec: 11/07/21 16:12 NOE [id number]) Nutrition Notes Need for Assessment generated from: court messenger Initial or Follow up Assessment Current Diagnosis CKD(stage I-IV),Hypertension Other Pertinent Diagnosis OHS, ALVERTO, HF NYHA-3, HFrEF, Hypokalemia, Coagulopathy, Transaminitis. Current Diet Cardiac Diet (since D 11/05). Labs/Tests 11/07: K 3.4, CO2 32, Glu 105. Pertinent Medications 11/07: Nutritionally unremarkable. 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 No reports available on Pt's PO intake of meals at the time , will assess at F/U. Pt is on Room Air, [id number] @ 98%, according to Physical Assessment History notes. Pt presents generalized pitting edema 2+, according to Physical Assessment History notes. Pt shows no signs of concern for skin risk at the time, according to Physical Assessment History notes. Percent of energy/protein needs met: Prescribed Cardiac Diet provides for energy/protein needs (2,230 Kcal/85 g) during LOS. Burn Absent Trauma Absent GI Symptoms None Food Allergy No Skin Integrity/Comment Assessment WNL. Minimum of two criteria No Fluid Accumulation Mild (non-severe) Reduced Psychosocial Rehabilitation Counselor Strength N/A (non-severe) Protein-Calorie Malnutrition N\A #1 Nutrition Diagnosis Overweight/obesity Etiology Possibly associated with lifestyle. As Evidenced by Signs and Symptoms BMI: 50.3 Kg/m2. Is patient on ventilator? No Is Patient Ambulatory and/or Out of Bed Yes REE-([place]-St. Jeor-ambulatory/OOB) [ 3380.000 [id number]] Kcal/Kg value to use for calculation 14 Approximate Energy Requirements Using 2355 kcal/Kg Calculation Used for Recommendations Kcal/kg Additional Notes Protein: <2.5 g/Kg IBW; 122 g/ day. Fluids: 1 ml/Kcal, or as per MD. Nutrition Intervention Change Diet Order: Continue Cardiac Diet as tolerated. Goal #1 Adjust the dietary intervention to better serve Pt's needs and clinical conditions during LOS. Follow-Up By: 11/14/21 Additional Comments Continue monitoring food tolerance, %PO intake of meals , and BM.
[2021-11-08] MEDS: hydrALAZINE 25 MG TAB PO SCH ×3 (12:11→21:37)
--- NOTE | 2021-11-08 12:25 | Progress Note ---
Assessment and Plan Patient is a 46-year-old male with no known past medical history who presented to the ED yesterday after being sent from his outpatient [facility] with blood pressures of 257/159 and volume overload Hypertensive emergency Acute HFrEF ANSHU-nephrology follow Obesity Echo 11/05/2021-technically difficult study. Severe global hypokinesis of LV. LVEF 20 to 25%. Transmitral Doppler flow pattern suggests impaired relaxation. Right ventricle is dilated. Right ventricle is hypokinetic. Right atrium is dilated. No pericardial effusion Plan: Blood pressure has significantly elevated Will increase to metoprolol 50 mg p.o. twice daily Initiate hydralazine 50 mg p.o. 3 times daily Continue aspirin and statin Patient still has bilateral lower extremity pitting edema. However creatinine noted to increase will decrease to with Lasix 20 mg IV twice daily. If okay with nephrology Will continue to hold KOBE or ARB due to increasing creatinine Strict I&O's, daily weights, repeat BMP in the a.m. close monitoring of renal function Will plan for ischemic eval on Thursday Discussed with both patient and spouse who was at bedside importance of fluid restrictions, diet restrictions, and medication compliance. Discussed plan of care with patient and spouse. Both verbalized understanding and acknowledged Patient seen in conjunction with Dr. Ferreira who agrees with this plan of care - Patient Problems (1) Hypertensive emergency Current Visit: Yes Status: Acute (2) New onset of congestive heart failure Current Visit: Yes Status: Acute (3) Obesity Current Visit: Yes Status: Acute (4) Acute renal insufficiency Current Visit: Yes Status: Acute (5) Obesity hypoventilation syndrome Current Visit: Yes Status: Acute (6) Acute kidney injury (ANSHU) with acute tubular necrosis (ATN) Current Visit: Yes Status: Acute Subjective Date of service: 11/08/21 Principal diagnosis: Hypertensive emergency, acute HFrEF Interval history: Patient resting in bed in no acute distress. Patient reports feeling better this a.m. and reports good urine output Sinus 70s-80s on monitor with no events Objective Vital Signs Temp Pulse Resp BP BP Pulse Ox 11/08/21 12:12 185/103 11/08/21 12:11 84 185/103 11/08/21 11:16 185/103 11/08/21 08:14 98.5 F 89 20 196/110 94 11/08/21 04:16 98.6 F 86 20 196/115 91 08/18/22 20:17 20 98 11/07/21 19:49 98.6 F 90 19 150/69 97 11/07/21 15:50 81 19 91/42 99 11/07/21 15:40 68 12 91/42 97 11/07/21 15:30 69 12 91/42 97 11/07/21 15:20 72 12 91/42 96 11/07/21 15:10 74 13 90/47 94 11/07/21 15:00 83 16 90/47 93 11/07/21 14:50 74 13 90/47 95 11/07/21 14:40 71 13 131/72 94 11/07/21 14:30 72 13 131/72 95 11/07/21 14:20 71 13 101/44 96 11/07/21 14:10 70 13 115/64 98 11/07/21 14:00 73 13 115/64 96 11/07/21 13:50 74 14 115/64 97 11/07/21 13:40 70 12 131/72 97 11/07/21 13:30 77 17 131/72 96 11/07/21 13:20 81 17 131/72 98 11/07/21 13:10 74 17 124/77 96 11/07/21 13:00 78 24 125/78 97 11/07/21 12:50 73 15 125/78 96 11/07/21 12:40 75 19 125/78 97 11/07/21 12:34 124/77 99 - Physical Examination General: No Apparent Distress HEENT: Positive: PERRL, Normocephaly Neck: Positive: trachea midline Cardiac: Positive: Reg Rate and Rhythm Lungs: Positive: clear to auscultation, Normal Breath Sounds Neuro: Positive: Grossly Intact Abdomen: Positive: Soft, Distended Skin: Negative: Rash, Suspicious Lesions, Ulceration Extremities: Present: upper extr. pulses, edema - Labs and Meds Comprehensive Metabolic Panel 11/08/21 Range/Units 04:10 Sodium 140 (137-145) mmol/L Potassium 3.3 L (3.6-5.0) mmol/L Chloride 98.6 (98-107) mmol/L Carbon Dioxide 32 H (22-30) mmol/L BUN 18 (9-20) mg/dL Creatinine 1.4 H (0.8-1.3) mg/dL Glucose 95 (75-100) mg/dL Calcium 9.2 (8.4-10.2) mg/dL - Imaging and Cardiology Echo: report reviewed - EKG Sinus rhythms and dysrhythmias: sinus rhythm Chamber hypertrophy or enlargement: left ventricular hypertro Repolarization changes or abnormalities: nonspecific abnormality, ST segment, and/or T wave
[2021-11-08] MEDS ORDERED: hydrALAZINE 25 MG TAB PO SCH (14:00)
[2021-11-09] MEDS: FUROSEMIDE 40 MG/4 ML INJ IV SCH ×4 (01:03→22:00)
[2021-11-09] MEDS: hydrALAZINE 20 MG/1 ML INJ IV PRN ×3 (02:39→17:44)
[2021-11-09] MEDS: hydrALAZINE 25 MG TAB PO SCH (05:07)
[2021-11-09 06:26] LABS: BUN/Creatinine Ratio 17; Blood Urea Nitrogen 20 mg/dL (9-20); Calcium 9.1 mg/dL (8.4-10.2); Hemolysis Index 19
--- NOTE | 2021-11-09 07:57 | Progress Note ---
Assessment and Plan Assessment and plan: 47 YO Male with Obesity Hypoventilation Syndrome, HTN presents ED for evaluation. Patient reports it is hard to breathe and my legs are swollen. Patient states that over the past 2 weeks he has experienced shortness of breath, decreased exercise tolerance, dyspnea on exertion, dyspnea at rest, leg swelling, orthopnea, paroxysmal nocturnal dyspnea, 10 pound unintentional weight gain, and shortness of breath with worsening symptoms over the same timeframe. Patient was seen and evaluated at the [facility] outpatient clinic today and was found to have an elevated blood pressure and a pulse oximetry of 85% on room air. EMS was notified and upon arrival the patient was found to be in distress and subsequent transported to [facility] for further care and evaluation of the aforementioned symptoms. The patient was seen and evaluated in the emergency department. All lab and imaging studies reviewed. Patient was found to have a blood pressure 219-247 mmHg / 140-157 mmHg which is consistent with hypertensive emergency as well as clinical symptoms consistent with CHF decompensation, as well as acute kidney injury. Patient initiated on nitro drip and admitted to IMCU due to increased risk of worsening symptoms and for medical stabilization. Patient also initiated on CHF protocol. Patient treated with diuretic therapy in the emergency department with improvement in symptoms and normalization of pulse oximetry. Patient denies fever, chills, chest pain, palpitation, adductive cough, skin rash, recent contact, or known exposure to COVID-19. No prior admission for review. No medication listed at time of admission for reconciliation. Advanced care planning conducted in ED. 11/07: Patient was hypotensive overnight as a result beta-leola has been decreased to 25 mg twice daily. Renal function has also improved. Unfortunately I do not have an accurate I's and O's. Will discuss with ca rdiology today if any ischemic work-up will be done as patient is noted to have an ejection fraction on echocardiogram done 11/05/2021-technically difficult study. Severe global hypokinesis of LV. LVEF 20 to 25%. Transmitral Doppler flow pattern suggests impaired relaxation. Right ventricle is dilated. Right ventricle is hypokinetic. Right atrium is dilated. No pericardial effusion In the meantime we will continue with Lasix 40 mg IV twice daily, lisinopril of 20 mg p.o. daily Strict I&O's, daily weights, Continue education on importance of fluid restrictions, diet restrictions, and medication compliance. We will try to further diuresis today and anticipate discharge in the next 24 hours if okay with cardiology 11/08: Patient seen and examined once again with hypertensive urgency. Adjustments made to medications. Hydralazine added. Beta-leola increased. Patient also noted to have mild increase in creatinine as a result Lasix has been adjusted. We will continue inpatient monitoring to ensure adequate control blood pressure and fluid management. I have also discussed with her [facility] physician group and their recommendation is that if the patient needs to continue in the hospital and if blood pressure is better controlled we will likely transfer out to one of the accepting facilities in a.m. 11/09: Patient's blood pressure remains significantly elevated systolic over 190. Discussed with vacuum conditioner operator we will go ahead and add Diovan 160 mg twice daily. Manager Qa will increase the Lasix to 40 twice daily to continue aggressive fluid removal as patient is still felt to be fluid overloaded. Goal is to achieve negative fluid balance. Continue with fluid restrictions at this time. Discussed with nursing staff to go ahead and give him a medication earlier. Patient did respond before to Procardia although when asked about it And the nurses have a used to check blood pressure he describes as sometimes the cough had slipped down to his wrist. In any case he remains with hypertensive urgency consider gradual treatment if this modalities do not improve he may need to be changed to a drip. Acute hypoxic respiratory [id number] orthopenia still persist Hypertensive emergency Acute Systolic Heart failure NYHA 3 ANSHU with vasomotor nephropathy Secondary Coagulopathy Hypokalemia ALVERTO Elevated LFT MORBID OBESITY Non Complaint Has not seen a doctor since he was 6years old until yesterday Has been diagnosed with sleep apnea since college Falls asleep during the day time for the last month Orthopena for the last 10 days Leg swelling for the last 6 weeks Continue with goal-directed medical therapy. Had initially started the patient on Procardia but per cardiology adjusted beta- leola and KOBE inhibitor instead. We will monitor renal function. Dietitian consultation Acurate I/O Cardene drip discontinued. Nephrology consult input noted Cardiology consult input noted Advance care planning discussion had with the patient maintains full code. Plan of care discussed in detail Preventive care discussion also had with the patient on management of congestive heart failure in addition to obstructive sleep apnea and the need to have his clinical sleep study on discharge. Weight loss counseling also provided for 15 minutes. Continue IMCU admission till BP stablized Critical care time 35 minutes History Interval history: Patient seen and examined admitted with congestive heart failure symptoms. Sitting up this morning. Blood pressure was again elevated. Denies any chest pain or headache. Hospitalist Physical - Physical exam Narrative exam: VITAL SIGNS: Reviewed. GENERAL: The patient appears normally developed, morbidly obese vital signs as documented. HEAD: No signs of head trauma. EYES: Pupils are equal. Extraocular motions intact. EARS: Hearing grossly intact. MOUTH: Oropharynx is normal. NECK: No adenopathy, no JVD. CHEST: Chest with fine rales at the bases breath sounds bilaterally. No wheezes. CARDIAC: Regular rate and rhythm. S1 and S2, without murmurs, gallops, or rubs. VASCULAR: +2 pitting edema. Peripheral pulses normal and equal in all extremities. ABDOMEN: Soft, non tender and non distended. No rebound or guarding, and no masses palpated. Bowel Sounds normal. MUSCULOSKELETAL: Good range of motion of all major joints. Extremities without clubbing, cyanosis. +2 pitting edema bilaterally. NEUROLOGIC EXAM: Alert and oriented x 3 No focal sensory or strength deficits. Speech normal. Follows commands. PSYCHIATRIC: Mood normal. SKIN: detail exam as documented in skin assessment - Constitutional Vitals: Temp Pulse Resp BP Pulse Ox 97.8 F 75 18 199/124 89 11/09/21 03:58 11/09/21 05:07 11/09/21 03:58 11/09/21 05:07 11/09/21 03:58 General appearance: Present: mild distress, obese HEART Score - HEART Score Troponin: Troponin T < 0.010 ng/mL (0.00-0.029) 11/05/21 19:14 Results - Labs CBC & Chem 7: 11/07/21 05:53 11/09/21 05:21 Labs: Laboratory Last Values WBC 10.2 K/mm3 (4.5-11.0) 11/07/21 05:53 RBC 5.27 M/mm3 (3.65-5.03) H 11/07/21 05:53 Hgb 14.7 gm/dl (11.8-15.2) 11/07/21 05:53 Hct 45.9 % (35.5-45.6) H 11/07/21 05:53 MCV 87 fl (84-94) 11/07/21 05:53 MCH 28 pg (28-32) 11/07/21 05:53 MCHC 32 % (32-34) 11/07/21 05:53 RDW 17.4 % (13.2-15.2) H 11/07/21 05:53 Plt Count 275 K/mm3 (140-440) 11/07/21 05:53 Lymph % (Auto) 22.6 % (13.4-35.0) 11/05/21 13:26 Greer % (Auto) 5.8 % (0.0-7.3) 11/05/21 13:26 Eos % (Auto) 0.9 % (0.0-4.3) 11/05/21 13:26 Baso % (Auto) 1.0 % (0.0-1.8) 11/05/21 13:26 Lymph # (Auto) 2.3 K/mm3 (1.2-5.4) 11/05/21 13:26 Greer # (Auto) 0.6 K/mm3 (0.0-0.8) 11/05/21 13:26 Eos # (Auto) 0.1 K/mm3 (0.0-0.4) 11/05/21 13:26 Baso # (Auto) 0.1 K/mm3 (0.0-0.1) 11/05/21 13:26 Seg Neutrophils % 69.7 % (40.0-70.0) 11/05/21 13:26 Seg Neutrophils # 7.2 K/mm3 (1.8-7.7) 11/05/21 13:26 PT 18.9 Sec. (12.2-14.9) H 11/05/21 13:26 INR 1.41 (0.87-1.13) H 11/05/21 13:26 APTT 37.1 Sec. (24.2-36.6) H 11/05/21 13:26 D-Dimer 378.20 ng/mlDDU (0-234) H 11/05/21 13:26 Sodium 142 mmol/L (137-145) 11/09/21 05:21 Potassium 3.7 mmol/L (3.6-5.0) 11/09/21 05:21 Chloride 100.8 mmol/L (98-107) 11/09/21 05:21 Carbon Dioxide 28 mmol/L (22-30) 11/09/21 05:21 Anion Gap 17 mmol/L 11/09/21 05:21 BUN 20 mg/dL (9-20) 11/09/21 05:21 Creatinine 1.2 mg/dL (0.8-1.3) 11/09/21 05:21 Estimated GFR > 60 ml/min 11/09/21 05:21 BUN/Creatinine Ratio 17 % 11/09/21 05:21 Glucose 94 mg/dL (75-100) 11/09/21 05:21 POC Glucose 88 mg/dL (70-105) 11/07/21 21:31 Calcium 9.1 mg/dL (8.4-10.2) 11/09/21 05:21 Magnesium 1.90 mg/dL (1.7-2.3) 11/08/21 04:10 Total Bilirubin 2.00 mg/dL (0.1-1.2) H 11/07/21 05:53 AST 38 units/L (5-40) 11/07/21 05:53 ALT 86 units/L (7-56) H 11/07/21 05:53 Alkaline Phosphatase 80 units/L (35-129) 11/07/21 05:53 Troponin T < 0.010 ng/mL (0.00-0.029) 11/05/21 19:14 NT-Pro-B Natriuret Pep 7394 pg/mL (0-450) H 11/05/21 15:35 Total Protein 6.0 g/dL (6.3-8.2) L 11/07/21 05:53 Albumin 3.9 g/dL (3.9-5) 11/07/21 05:53 Albumin/Globulin Ratio 1.9 % 11/07/21 05:53 Triglycerides 90 mg/dL (2-149) 11/07/21 05:53 Cholesterol 168 mg/dL (50-199) 11/07/21 05:53 LDL Cholesterol Direct 120 mg/dL (50-130) 11/07/21 05:53 HDL Cholesterol 32 mg/dL (40-59) L 11/07/21 05:53 Cholesterol/HDL Ratio 5.25 % 11/07/21 05:53 TSH 3.080 mlU/mL (0.270-4.200) 11/05/21 19:14 Free T4 1.41 ng/dL (0.76-1.46) 11/05/21 19:14 Umaña/IV: Voiding Method Toilet Active Medications - Current Medications Current Medications: Generic Name Dose Route Start Last Admin Trade Name Freq PRN Reason Stop Dose Admin Acetaminophen 650 mg 11/05/21 18:00 Acetaminophen 325 Mg Tab PO Q6H PRN Pain MILD(1-3)/Fever >100.5/COLUNGA Albuterol 2.5 mg 11/05/21 18:00 Albuterol 2.5 Mg/3 Ml Nebu IH Q3HRT PRN Shortness Of Breath Aspirin 81 mg 11/08/21 10:00 11/08/21 09:34 Aspirin 81 Mg Tab Chew PO 81 mg QDAY NORMA Administration Atorvastatin Calcium 10 mg 11/07/21 22:00 11/08/21 21:37 Atorvastatin 10 Mg Tab PO 10 mg QHS NORMA Administration Furosemide 40 mg 11/08/21 23:49 11/09/21 01:03 Furosemide 40 Mg/4 Ml Inj IV 40 mg BID NORMA Administration Hydralazine HCl 10 mg 11/09/21 02:32 11/09/21 02:39 Hydralazine 20 Mg/1 Ml Inj IV 10 mg Q4H PRN Administration Hypertension SBP >160 Hydralazine HCl 100 mg 11/09/21 07:55 Hydralazine 25 Mg Tab PO Q8HR NORMA Metoprolol Tartrate 50 mg 11/08/21 11:00 11/08/21 21:37 Metoprolol Tartrate 25 Mg Tab PO 50 mg BID NORMA Administration Morphine Sulfate 1 mg 11/05/21 18:00 Morphine 4 Mg/1 Ml Inj IV Q8H PRN Pain , Severe (7-10) Oxycodone/Acetaminophen 1 tab 11/05/21 17:25 Oxycodone /Acetaminophen 5-325mg Tab PO Q16H PRN Pain, Moderate (4-6) Sodium Chloride 10 ml 11/05/21 22:00 11/08/21 21:38 Sodium Chloride 0.9% 10 Ml Flush Syringe IV 11/10/21 21:59 10 ml BID NORMA Administration Sodium Chloride 10 ml 11/05/21 17:25 Sodium Chloride 0.9% 10 Ml Flush Syringe IV 11/10/21 17:24 PRN PRN LINE FLUSH Valsartan 160 mg 11/09/21 10:00 Valsartan 160mg Tab PO BID NORMA Nutrition/Malnutrition Assess - Dietary Evaluation Nutrition/Malnutrition Findings: Nutrition Notes Start: 11/07/21 15:44 Freq: Status: Active Protocol: Document 11/07/21 15:44 NOE (Rec: 11/07/21 16:12 NOE [id number]) Nutrition Notes Need for Assessment generated from: cake icer Initial or Follow up Assessment Current Diagnosis CKD(stage I-IV),Hypertension Other Pertinent Diagnosis OHS, ALVERTO, HF NYHA-3, HFrEF, Hypokalemia, Coagulopathy, Transaminitis. Current Diet Cardiac Diet (since D 11/05). Labs/Tests 11/07: K 3.4, CO2 32, Glu 105. Pertinent Medications 11/07: Nutritionally unremarkable. Height 6 ft Weight 168.2 kg [place] Body Weight (kg) 80.90 BMI 50.3 Intake Prior to Admission Good Weight change and time frame Pt denies having loss body weight [employer]. 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 No reports available on Pt's PO intake of meals at the time , will assess at F/U. Pt is on Room Air, [id number] @ 98%, according to Physical Assessment History notes. Pt presents generalized pitting edema 2+, according to Physical Assessment History notes. Pt shows no signs of concern for skin risk at the time, according to Physical Assessment History notes. Percent of energy/protein needs met: Prescribed Cardiac Diet provides for energy/protein needs (2,230 Kcal/85 g) during LOS. Burn Absent Trauma Absent GI Symptoms None Food Allergy No Skin Integrity/Comment Assessment WNL. Minimum of two criteria No Fluid Accumulation Mild (non-severe) Reduced [place] Strength N/A (non-severe) Protein-Calorie Malnutrition N\A #1 Nutrition Diagnosis Overweight/obesity Etiology Possibly associated with lifestyle. As Evidenced by Signs and Symptoms BMI: 50.3 Kg/m2. Is patient on ventilator? No Is Patient Ambulatory and/or Out of Bed Yes REE-([place]-St. Jeor-ambulatory/OOB) [ 3380.000 [id number]] Kcal/Kg value to use for calculation 14 Approximate Energy Requirements Using 2355 kcal/Kg Calculation Used for Recommendations Kcal/kg Additional Notes Protein: <2.5 g/Kg IBW; 122 g/ day. Fluids: 1 ml/Kcal, or as per MD. Nutrition Intervention Change Diet Order: Continue Cardiac Diet as tolerated. Goal #1 Adjust the dietary intervention to better serve Pt's needs and clinical conditions during LOS. Follow-Up By: 11/14/21 Additional Comments Continue monitoring food tolerance, %PO intake of meals , and BM.
[2021-11-09] MEDS: ASPIRIN 81 MG TAB CHEW PO SCH ×2 (08:36→10:59)
[2021-11-09] MEDS: VALSARTAN 160MG TAB PO SCH ×3 (08:36→22:00)
[2021-11-09] MEDS: METOPROLOL TARTRATE 25 MG TAB PO SCH ×3 (08:37→20:33)
[2021-11-09] MEDS ORDERED: FUROSEMIDE 40 MG/4 ML INJ IV SCH (10:00)
--- NOTE | 2021-11-09 12:52 | Progress Note ---
Assessment and Plan 1. Acute kidney injury: Suspect Vasomotor ANSHU. Renal US negative. Urine studies ordered. Monitor renal function. Creatinine level is better. Avoid nephrotoxic agents. Meds dosage based on GFR. 2. FEN: On IV Lasix. Replete lytes as needed. Monitor lytes and volume status. 3. Acute hypoxic respiratory failure, POA: 2/2 CHF. Supplemental O2 as needed. Monitor. 4. Hypertensive Emergency, POA: Adjust BP meds. Volume control. Monitor. 5. Decompensated HFrEF: Echo 11/05/2021: Severe global hypokinesis of LV. LVEF 20 to 25%. Transmitral Doppler flow pattern suggests impaired relaxation. Right ventricle is dilated. Right ventricle is hypokinetic. Right atrium is dilated. Followed by Cards. 6. ALVERTO. 7. Elevated LFT: Trend. Subjective: Patient was seen and examined at the bedside. Doing ok. Examination: General appearance: well-developed, morbidly obese, appears stated age, no distress HEENT: atraumatic, no icterus Neck: trachea midline Respiratory: diminished breath sounds Heart: S1S2, regular, no murmur Abdomen: soft, bowel sounds heard, NT Integumentary: no obvious rash Neurologic: AO, moving extremities Ext: 2+ b/l LE edema Subjective Date of service: 11/09/21 Principal diagnosis: Hypertensive emergency, acute HFrEF Objective - Vital Signs Vital signs: Vital Signs - 12hr 11/09/21 11/09/21 11/09/21 02:39 03:58 05:07 Temperature 97.8 F Pulse Rate 84 75 75 Respiratory 18 Rate Blood Pressure 213/135 199/124 199/124 O2 Sat by Pulse 89 Oximetry 11/09/21 11/09/21 08:37 12:00 Temperature Pulse Rate 82 Respiratory Rate Blood Pressure 215/127 O2 Sat by Pulse 96 Oximetry - Lab 11/07/21 05:53 11/09/21 05:21 Most recent lab results Calcium 9.1 mg/dL (8.4-10.2) 11/09/21 05:21 Magnesium 1.90 mg/dL (1.7-2.3) 11/08/21 04:10 Medications & Allergies - Medications Allergies/Adverse Reactions: Allergies No Known Allergies Allergy (Verified 11/05/21 12:44) Home Medications: Home Medications Medication Instructions Recorded Confirmed Last Taken Type No Known Home Medications [No 11/06/21 11/06/21 Unknown History Reported Home Medications] Active Medications: Generic Name Dose Route Start Last Admin Trade Name Darren PRN Reason Stop Dose Admin Acetaminophen 650 mg 11/05/21 18:00 Acetaminophen 325 Mg Tab PO Q6H PRN Pain MILD(1-3)/Fever >100.5/COLUNGA Albuterol 2.5 mg 11/05/21 18:00 Albuterol 2.5 Mg/3 Ml Nebu IH Q3HRT PRN Shortness Of Breath Aspirin 81 mg 11/08/21 10:00 11/09/21 10:59 Aspirin 81 Mg Tab Chew PO Not Given QDAY NORMA Atorvastatin Calcium 10 mg 11/07/21 22:00 11/08/21 21:37 Atorvastatin 10 Mg Tab PO 10 mg QHS NORMA Administration Furosemide 40 mg 11/08/21 23:49 11/09/21 10:59 Furosemide 40 Mg/4 Ml Inj IV Not Given BID NORMA Hydralazine HCl 10 mg 11/09/21 02:32 11/09/21 08:37 Hydralazine 20 Mg/1 Ml Inj IV 10 mg Q4H PRN Administration Hypertension SBP >160 Hydralazine HCl 100 mg 11/09/21 14:00 Hydralazine 100 Mg Tab PO Q8HR [facility] Metoprolol Tartrate 50 mg 11/08/21 11:00 11/09/21 10:59 Metoprolol Tartrate 25 Mg Tab PO Not Given BID [facility] Morphine Sulfate 1 mg 11/05/21 18:00 Morphine 4 Mg/1 Ml Inj IV Q8H PRN Pain , Severe (7-10) Oxycodone/Acetaminophen 1 tab 11/05/21 17:25 Oxycodone /Acetaminophen 5-325mg Tab PO Q16H PRN Pain, Moderate (4-6) Sodium Chloride 10 ml 11/05/21 22:00 11/09/21 11:00 Sodium Chloride 0.9% 10 Ml Flush Syringe IV 11/10/21 21:59 10 ml BID NORMA Administration Sodium Chloride 10 ml 11/05/21 17:25 Sodium Chloride 0.9% 10 Ml Flush Syringe IV 11/10/21 17:24 PRN PRN LINE FLUSH Valsartan 160 mg 11/09/21 10:00 11/09/21 10:59 Valsartan 160mg Tab PO Not Given BID NORMA
[2021-11-09] MEDS: hydrALAZINE 100 MG TAB PO SCH ×2 (14:05→22:00)
--- NOTE | 2021-11-09 18:23 | Progress Note ---
Assessment and Plan Assessment: Hypertensive Emergency Acute HFrEF CMP (EF 20-25% on echo this admission) ANSHU Morbid Obesity ?OHS/ALVERTO Plan: Continue IV Lasix 40mg BID. Strict I/Os. Will give extra dose of IV Lasix today given significant volume overload. F/u BMP in AM. PRN repletion of electrolytes. BP remains markedly uncontrolled. Increase Hydralazine to 100mg TID. Increase Lopressor to 50mg TID. Will be converted to Toprol XL at discharge. Continue Valsartan 160mg BID. Plan for LHC tentatively on Thursday if euvolemic. Pt seen in conjunction with Dr. Killian Ferreira, who agrees with the assessment and plan of care. - Patient Problems (1) Hypertensive emergency Current Visit: Yes Status: Acute (2) Acute HFrEF (heart failure with reduced ejection fraction) Current Visit: Yes Status: Acute (3) ANSHU (acute kidney injury) Current Visit: Yes Status: Acute (4) Morbid obesity Current Visit: Yes Status: Chronic Subjective Date of service: 11/09/21 Principal diagnosis: Hypertensive Emergency, Acute HFrEF Interval history: No chest pain. C/o SOB/orthopnea and worried about "becoming dependent on supplemental O2." Still with significant edema. No UOP documented / 24 hrs. SR 70s with PVCs on tele, no events. Family at bedside. Objective Vital Signs Temp Pulse Resp BP Pulse Ox 11/09/21 17:44 186/100 11/09/21 12:15 97.4 F L 76 20 174/111 94 11/09/21 12:00 82 96 11/09/21 08:37 215/127 11/09/21 08:26 214/109 11/09/21 05:07 75 199/124 11/09/21 03:58 97.8 F 75 18 199/124 89 11/09/21 02:39 84 213/135 11/08/21 23:17 98.1 F 79 18 173/122 93 11/08/21 22:00 81 11/08/21 21:37 87 188/103 11/08/21 20:00 95 11/08/21 19:19 98.4 F 86 18 207/124 86 - Physical Examination General: No Apparent Distress HEENT: Positive: EOMI, Normocephaly Neck: Negative: JVD/HJR Cardiac: Positive: Reg Rate and Rhythm, S1/S2 Lungs: Positive: Decreased Breath Sounds Neuro: Positive: Grossly Intact Abdomen: Positive: Distended. Negative: Tender Skin: Negative: Rash Extremities: Present: +2 Edema, warm - Labs and Meds Comprehensive Metabolic Panel 11/09/21 Range/Units 05:21 Sodium 142 (137-145) mmol/L Potassium 3.7 (3.6-5.0) mmol/L Chloride 100.8 (98-107) mmol/L Carbon Dioxide 28 (22-30) mmol/L BUN 20 (9-20) mg/dL Creatinine 1.2 (0.8-1.3) mg/dL Glucose 94 (75-100) mg/dL Calcium 9.1 (8.4-10.2) mg/dL - Imaging and Cardiology EKG: report reviewed, image reviewed Echo: report reviewed - Telemetry EKG Rhythm: Sinus Rhythm - EKG Sinus rhythms and dysrhythmias: sinus rhythm Chamber hypertrophy or enlargement: left ventricular hypertro Repolarization changes or abnormalities: nonspecific abnormality, ST segment, and/or T wave
[2021-11-09] MEDS ORDERED: FUROSEMIDE 40 MG/4 ML INJ IV ONE (22:00)
[2021-11-10] MEDS: hydrALAZINE 20 MG/1 ML INJ IV PRN (03:43)
[2021-11-10] MEDS: hydrALAZINE 100 MG TAB PO SCH ×3 (06:19→21:34)
--- NOTE | 2021-11-10 07:48 | Progress Note ---
Assessment and Plan Assessment and plan: 47 YO Male with Obesity Hypoventilation Syndrome, HTN presents ED for evaluation. Patient reports it is hard to breathe and my legs are swollen. Patient states that over the past 2 weeks he has experienced shortness of breath, decreased exercise tolerance, dyspnea on exertion, dyspnea at rest, leg swelling, orthopnea, paroxysmal nocturnal dyspnea, 10 pound unintentional weight gain, and shortness of breath with worsening symptoms over the same timeframe. Patient was seen and evaluated at the [place] outpatient clinic today and was found to have an elevated blood pressure and a pulse oximetry of 85% on room air. EMS was notified and upon arrival the patient was found to be in distress and subsequent transported to [facility] for further care and evaluation of the aforementioned symptoms. The patient was seen and evaluated in the emergency department. All lab and imaging studies reviewed. Patient was found to have a blood pressure 219-247 mmHg / 140-157 mmHg which is consistent with hypertensive emergency as well as clinical symptoms consistent with CHF decompensation, as well as acute kidney injury. Patient initiated on nitro drip and admitted to IMCU due to increased risk of worsening symptoms and for medical stabilization. Patient also initiated on CHF protocol. Patient treated with diuretic therapy in the emergency department with improvement in symptoms and normalization of pulse oximetry. Patient denies fever, chills, chest pain, palpitation, adductive cough, skin rash, recent contact, or known exposure to COVID-19. No prior admission for review. No medication listed at time of admission for reconciliation. Advanced care planning conducted in ED. 11/07: Patient was hypotensive overnight as a result beta-leoal has been decreased to 25 mg twice daily. Renal function has also improved. Unfortunately I do not have an accurate I's and O's. Will discuss with ca rdiology today if any ischemic work-up will be done as patient is noted to have an ejection fraction on echocardiogram done 11/05/2021-technically difficult study. Severe global hypokinesis of LV. LVEF 20 to 25%. Transmitral Doppler flow pattern suggests impaired relaxation. Right ventricle is dilated. Right ventricle is hypokinetic. Right atrium is dilated. No pericardial effusion In the meantime we will continue with Lasix 40 mg IV twice daily, lisinopril of 20 mg p.o. daily Strict I&O's, daily weights, Continue education on importance of fluid restrictions, diet restrictions, and medication compliance. We will try to further diuresis today and anticipate discharge in the next 24 hours if okay with cardiology 11/08: Patient seen and examined once again with hypertensive urgency. Adjustments made to medications. Hydralazine added. Beta-leola increased. Patient also noted to have mild increase in creatinine as a result Lasix has been adjusted. We will continue inpatient monitoring to ensure adequate control blood pressure and fluid management. I have also discussed with her [place] physician group and their recommendation is that if the patient needs to continue in the hospital and if blood pressure is better controlled we will likely transfer out to one of the accepting facilities in a.m. 11/09: Patient's blood pressure remains significantly elevated systolic over 190. Discussed with biology faculty member we will go ahead and add Diovan 160 mg twice daily. 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 Goal is to achieve negative fluid balance. Continue with fluid restrictions at this time. Discussed with nursing staff to go ahead and give him a medication earlier. Patient did respond before to Procardia although when asked about it And the nurses have a used to check blood pressure he describes as sometimes the cough had slipped down to his wrist. In any case he remains with hypertensive urgency consider gradual treatment if this modalities do not improve he may need to be changed to a drip. 11/10: Patient seen and examined yesterday beta-leola was increased to 50 mg 3 times daily, there is also addition to valsartan that was started at 160 mg twice daily and also hydralazine increased to 100 mg 3 times daily. Blood pressure did correct some but this morning remains elevated. However patient has not received a.m. medication despite this elevated systolic in the 190s systolic acceptable. Additional Lasix was also given yesterday. Reports appropriate diuresis. We will discussed with cardiology and nephrology about any additional adjustments. Renal function is improved. Awaiting repeat labs for today. Tentatively plan for cardiac cath in a.m. Acute hypoxic respiratory [id number] orthopenia still persist Hypertensive emergency Acute Systolic Heart failure NYHA 3 ANSHU with vasomotor nephropathy Secondary Coagulopathy Hypokalemia ALVERTO Elevated LFT MORBID OBESITY Non Complaint Has not seen a doctor since he was 6years old until yesterday Has been diagnosed with sleep apnea since college Falls asleep during the day time for the last month Orthopena for the last 10 days Leg swelling for the last 6 weeks Continue with goal-directed medical therapy. Had initially started the patient on Procardia but per cardiology adjusted beta- leola and KOBE inhibitor instead. We will monitor renal function. Dietitian consultation Acurate I/O Cardene drip discontinued. Nephrology consult input noted Cardiology consult input noted Advance care planning discussion had with the patient maintains full code. Plan of care discussed in detail Preventive care discussion also had with the patient on management of congestive heart failure in addition to obstructive sleep apnea and the need to have his clinical sleep study on discharge. Weight loss counseling also provided for 15 minutes. Continue IMCU admission till BP stablized Critical care time 35 minutes History Interval history: Patient seen and examined admitted with congestive heart failure symptoms. Sitting up this morning. Blood pressure still elevated. Denies any chest pain or headache. He does however still have some shortness of breath still requiring 2 L of oxygen Hospitalist Physical - Physical exam Narrative exam: VITAL SIGNS: Reviewed. GENERAL: The patient appears normally developed, morbidly obese vital signs as documented. HEAD: No signs of head trauma. EYES: Pupils are equal. Extraocular motions intact. EARS: Hearing grossly intact. MOUTH: Oropharynx is normal. NECK: No adenopathy, no JVD. CHEST: Chest with fine rales at the bases breath sounds bilaterally. No wheezes. CARDIAC: Regular rate and rhythm. S1 and S2, without murmurs, gallops, or rubs. VASCULAR: +2 pitting edema. Peripheral pulses normal and equal in all extremities. ABDOMEN: Soft, non tender and non distended. No rebound or guarding, and no masses palpated. Bowel Sounds normal. MUSCULOSKELETAL: Good range of motion of all major joints. Extremities without clubbing, cyanosis. +2 pitting edema bilaterally. NEUROLOGIC EXAM: Alert and oriented x 3 No focal sensory or strength deficits. Speech normal. Follows commands. PSYCHIATRIC: Mood normal. SKIN: detail exam as documented in skin assessment - Constitutional Vitals: Temp Pulse Resp BP Pulse Ox 97.9 F 78 18 191/110 91 11/10/21 03:12 11/10/21 03:12 11/10/21 03:12 11/10/21 03:12 11/10/21 03:12 General appearance: Present: mild distress, obese HEART Score - HEART Score Troponin: Troponin T < 0.010 ng/mL (0.00-0.029) 11/05/21 19:14 Results - Labs CBC & Chem 7: 11/07/21 05:53 11/09/21 05:21 Labs: Laboratory Last Values WBC 10.2 K/mm3 (4.5-11.0) 11/07/21 05:53 RBC 5.27 M/mm3 (3.65-5.03) H 11/07/21 05:53 Hgb 14.7 gm/dl (11.8-15.2) 11/07/21 05:53 Hct 45.9 % (35.5-45.6) H 11/07/21 05:53 MCV 87 fl (84-94) 11/07/21 05:53 MCH 28 pg (28-32) 11/07/21 05:53 MCHC 32 % (32-34) 11/07/21 05:53 RDW 17.4 % (13.2-15.2) H 11/07/21 05:53 Plt Count 275 K/mm3 (140-440) 11/07/21 05:53 Lymph % (Auto) 22.6 % (13.4-35.0) 11/05/21 13:26 [place] % (Auto) 5.8 % (0.0-7.3) 11/05/21 13:26 Eos % (Auto) 0.9 % (0.0-4.3) 11/05/21 13:26 Baso % (Auto) 1.0 % (0.0-1.8) 11/05/21 13:26 Lymph # (Auto) 2.3 K/mm3 (1.2-5.4) 11/05/21 13:26 [place] # (Auto) 0.6 K/mm3 (0.0-0.8) 11/05/21 13:26 Eos # (Auto) 0.1 K/mm3 (0.0-0.4) 11/05/21 13:26 Baso # (Auto) 0.1 K/mm3 (0.0-0.1) 11/05/21 13:26 Seg Neutrophils % 69.7 % (40.0-70.0) 11/05/21 13:26 Seg Neutrophils # 7.2 K/mm3 (1.8-7.7) 11/05/21 13:26 PT 18.9 Sec. (12.2-14.9) H 11/05/21 13:26 INR 1.41 (0.87-1.13) H 11/05/21 13:26 APTT 37.1 Sec. (24.2-36.6) H 11/05/21 13:26 D-Dimer 378.20 ng/mlDDU (0-234) H 11/05/21 13:26 Sodium 142 mmol/L (137-145) 11/09/21 05:21 Potassium 3.7 mmol/L (3.6-5.0) 11/09/21 05:21 Chloride 100.8 mmol/L (98-107) 11/09/21 05:21 Carbon Dioxide 28 mmol/L (22-30) 11/09/21 05:21 Anion Gap 17 mmol/L 11/09/21 05:21 BUN 20 mg/dL (9-20) 11/09/21 05:21 Creatinine 1.2 mg/dL (0.8-1.3) 11/09/21 05:21 Estimated GFR > 60 ml/min 11/09/21 05:21 BUN/Creatinine Ratio 17 % 11/09/21 05:21 Glucose 94 mg/dL (75-100) 11/09/21 05:21 POC Glucose 138 mg/dL (70-105) H 11/09/21 20:24 Calcium 9.1 mg/dL (8.4-10.2) 11/09/21 05:21 Magnesium 1.90 mg/dL (1.7-2.3) 11/08/21 04:10 Total Bilirubin 2.00 mg/dL (0.1-1.2) H 11/07/21 05:53 AST 38 units/L (5-40) 11/07/21 05:53 ALT 86 units/L (7-56) H 11/07/21 05:53 Alkaline Phosphatase 80 units/L (35-129) 11/07/21 05:53 Troponin T < 0.010 ng/mL (0.00-0.029) 11/05/21 19:14 NT-Pro-B Natriuret Pep 7394 pg/mL (0-450) H 11/05/21 15:35 Total Protein 6.0 g/dL (6.3-8.2) L 11/07/21 05:53 Albumin 3.9 g/dL (3.9-5) 11/07/21 05:53 Albumin/Globulin Ratio 1.9 % 11/07/21 05:53 Triglycerides 90 mg/dL (2-149) 11/07/21 05:53 Cholesterol 168 mg/dL (50-199) 11/07/21 05:53 LDL Cholesterol Direct 120 mg/dL (50-130) 11/07/21 05:53 HDL Cholesterol 32 mg/dL (40-59) L 11/07/21 05:53 Cholesterol/HDL Ratio 5.25 % 11/07/21 05:53 TSH 3.080 mlU/mL (0.270-4.200) 11/05/21 19:14 Free T4 1.41 ng/dL (0.76-1.46) 11/05/21 19:14 Umaña/IV: Voiding Method Toilet Active Medications - Current Medications Current Medications: Generic Name Dose Route Start Last Admin Trade Name Freq PRN Reason Stop Dose Admin Acetaminophen 650 mg 11/05/21 18:00 Acetaminophen 325 Mg Tab PO Q6H PRN Pain MILD(1-3)/Fever >100.5/COLUNGA Albuterol 2.5 mg 11/05/21 18:00 Albuterol 2.5 Mg/3 Ml Nebu IH Q3HRT PRN Shortness Of Breath Aspirin 81 mg 11/08/21 10:00 11/09/21 10:59 Aspirin 81 Mg Tab Chew PO Not Given QDAY NORMA Atorvastatin Calcium 10 mg 11/07/21 22:00 11/09/21 22:00 Atorvastatin 10 Mg Tab PO 10 mg QHS NORMA Administration Furosemide 40 mg 11/08/21 23:49 11/09/21 22:00 Furosemide 40 Mg/4 Ml Inj IV 40 mg BID NORMA Administration Hydralazine HCl 10 mg 11/09/21 02:32 11/10/21 03:43 Hydralazine 20 Mg/1 Ml Inj IV 10 mg Q4H PRN Administration Hypertension SBP >160 Hydralazine HCl 100 mg 11/09/21 14:00 11/10/21 06:19 Hydralazine 100 Mg Tab PO 100 mg Q8HR NORMA Administration Metoprolol Tartrate 50 mg 11/09/21 20:00 11/09/21 20:33 Metoprolol Tartrate 25 Mg Tab PO 50 mg TID NORMA Administration Morphine Sulfate 1 mg 11/05/21 18:00 Morphine 4 Mg/1 Ml Inj IV Q8H PRN Pain , Severe (7-10) Oxycodone/Acetaminophen 1 tab 11/05/21 17:25 Oxycodone /Acetaminophen 5-325mg Tab PO Q16H PRN Pain, Moderate (4-6) Sodium Chloride 10 ml 11/05/21 22:00 11/09/21 22:00 Sodium Chloride 0.9% 10 Ml Flush Syringe IV 11/10/21 21:59 10 ml BID NORMA Administration Sodium Chloride 10 ml 11/05/21 17:25 Sodium Chloride 0.9% 10 Ml Flush Syringe IV 11/10/21 17:24 PRN PRN LINE FLUSH Valsartan 160 mg 11/09/21 10:00 11/09/21 22:00 Valsartan 160mg Tab PO 160 mg BID NORMA Administration Nutrition/Malnutrition Assess - Dietary Evaluation Nutrition/Malnutrition Findings: Nutrition Notes Start: 11/07/21 15:44 Freq: Status: Active Protocol: Document 11/07/21 15:44 NOE (Rec: 11/07/21 16:12 NOE [id number]) Nutrition Notes Need for Assessment generated from: pin chaser Initial or Follow up Assessment Current Diagnosis CKD(stage I-IV),Hypertension Other Pertinent Diagnosis OHS, ALVERTO, HF NYHA-3, HFrEF, Hypokalemia, Coagulopathy, Transaminitis. Current Diet Cardiac Diet (since D 11/05). Labs/Tests 11/07: K 3.4, CO2 32, Glu 105. Pertinent Medications 11/07: Nutritionally unremarkable. 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 No reports available on Pt's PO intake of meals at the time , will assess at F/U. Pt is on Room Air, [id number] @ 98%, according to Physical Assessment History notes. Pt presents generalized pitting edema 2+, according to Physical Assessment History notes. Pt shows no signs of concern for skin risk at the time, according to Physical Assessment History notes. Percent of energy/protein needs met: Prescribed Cardiac Diet provides for energy/protein needs (2,230 Kcal/85 g) during LOS. Burn Absent Trauma Absent GI Symptoms None Food Allergy No Skin Integrity/Comment Assessment WNL. 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 As Evidenced by Signs and Symptoms BMI: 50.3 Kg/m2. Is patient on ventilator? No Is Patient Ambulatory and/or Out of Bed Yes REE-(Sargent-St. Jeor-ambulatory/OOB) [ 3380.000 [id number]] Kcal/Kg value to use for calculation 14 Approximate Energy Requirements Using 2355 kcal/Kg Calculation Used for Recommendations Kcal/kg Additional Notes Protein: <2.5 g/Kg IBW; 122 g/ day. Fluids: 1 ml/Kcal, or as per MD. Nutrition Intervention Change Diet Order: Continue Cardiac Diet as tolerated. Goal #1 Adjust the dietary intervention to better serve Pt's needs and clinical conditions during LOS. Follow-Up By: 11/14/21 Additional Comments Continue monitoring food tolerance, %PO intake of meals , and BM.
--- NOTE | 2021-11-10 09:36 | Progress Note ---
Assessment and Plan 1. Acute kidney injury: Suspect Vasomotor ANSHU. Renal US negative. Monitor renal function. Creatinine level is better. Avoid nephrotoxic agents. Meds dosage based on GFR. 2. FEN: On IV Lasix. Replete lytes as needed. Monitor lytes and volume status. 3. Acute hypoxic respiratory failure, POA: 2/2 CHF. Supplemental O2 as needed. Monitor. 4. Hypertensive Emergency, POA: Adjust BP meds. Volume control. Monitor. 5. Decompensated HFrEF: Echo 11/05/2021: Severe global hypokinesis of LV. LVEF 20 to 25%. Transmitral Doppler flow pattern suggests impaired relaxation. Right ventricle is dilated. Right ventricle is hypokinetic. Right atrium is dilated. Followed by Cards. 6. ALVERTO. 7. Elevated LFT: Trend. F/u in 1-2 weeks. Subjective: Patient was seen and examined at the bedside. Doing ok. Examination: General appearance: well-developed, morbidly obese, appears stated age, no distress HEENT: atraumatic, no icterus Neck: trachea midline Respiratory: diminished breath sounds Heart: S1S2, regular, no murmur Abdomen: soft, bowel sounds heard, NT Integumentary: no obvious rash Neurologic: AO, moving extremities Ext: 2+ b/l LE edema Subjective Date of service: 11/10/21 Principal diagnosis: Hypertensive emergency, acute HFrEF Objective - Vital Signs Vital signs: Vital Signs - 12hr 11/09/21 11/09/21 11/10/21 22:00 23:14 03:12 Temperature 98.2 F 97.9 F Pulse Rate 82 78 Respiratory 18 18 Rate Blood Pressure 157/89 191/110 O2 Sat by Pulse 96 92 91 Oximetry 11/10/21 08:24 Temperature 98.1 F Pulse Rate 86 Respiratory 18 Rate Blood Pressure 177/110 O2 Sat by Pulse 90 Oximetry - Lab 11/11/21 04:47 11/11/21 04:47 Most recent lab results Calcium 9.1 mg/dL (8.4-10.2) 11/09/21 05:21 Magnesium 1.90 mg/dL (1.7-2.3) 11/08/21 04:10 Medications & Allergies - Medications Allergies/Adverse Reactions: Allergies No Known Allergies Allergy (Verified 11/05/21 12:44) Home Medications: Home Medications Medication Instructions Recorded Confirmed Last Taken Type Aspirin [Aspirin BABY CHEW TAB] 81 mg PO QDAY #30 tab.chew 11/11/21 Unknown Rx AtorvaSTATin 10 mg PO QHS #30 tablet 11/11/21 Unknown Rx Furosemide [Lasix TAB] 40 mg PO QDAY #30 tablet 11/11/21 Unknown Rx Metoprolol [Lopressor TAB] 50 mg PO BID #60 tablet 11/11/21 Unknown Rx NIFEdipine XL [Procardia Xl] 90 mg PO QDAY #30 tablet 11/11/21 Unknown Rx Potassium Chloride [K-Dur] 20 meq PO DAILY #10 tablet 11/11/21 Unknown Rx Valsartan [Diovan] 160 mg PO BID #60 tablet 11/11/21 Unknown Rx hydrALAZINE [Apresoline TAB] 100 mg PO Q8HR #30 tab 11/11/21 Unknown Rx Active Medications: Generic Name Dose Route Start Last Admin Trade Name Freq PRN Reason Stop Dose Admin Acetaminophen 650 mg 11/05/21 18:00 Acetaminophen 325 Mg Tab PO Q6H PRN Pain MILD(1-3)/Fever >100.5/COLUNGA Albuterol 2.5 mg 11/05/21 18:00 Albuterol 2.5 Mg/3 Ml Nebu IH Q3HRT PRN Shortness Of Breath Aspirin 81 mg 11/08/21 10:00 11/09/21 10:59 Aspirin 81 Mg Tab Chew PO Not Given QDAY NORMA Atorvastatin Calcium 10 mg 11/07/21 22:00 11/09/21 22:00 Atorvastatin 10 Mg Tab PO 10 mg QHS NORMA Administration Furosemide 40 mg 11/08/21 23:49 11/09/21 22:00 Furosemide 40 Mg/4 Ml Inj IV 40 mg BID NORMA Administration Hydralazine HCl 10 mg 11/09/21 02:32 11/10/21 03:43 Hydralazine 20 Mg/1 Ml Inj IV 10 mg Q4H PRN Administration Hypertension SBP >160 Hydralazine HCl 100 mg 11/09/21 14:00 11/10/21 06:19 Hydralazine 100 Mg Tab PO 100 mg Q8HR NORMA Administration Metoprolol Tartrate 50 mg 11/09/21 20:00 11/09/21 20:33 Metoprolol Tartrate 25 Mg Tab PO 50 mg TID NORMA Administration Morphine Sulfate 1 mg 11/05/21 18:00 Morphine 4 Mg/1 Ml Inj IV Q8H PRN Pain , Severe (7-10) Oxycodone/Acetaminophen 1 tab 11/05/21 17:25 Oxycodone /Acetaminophen 5-325mg Tab PO Q16H PRN Pain, Moderate (4-6) Sodium Chloride 10 ml 11/05/21 22:00 11/09/21 22:00 Sodium Chloride 0.9% 10 Ml Flush Syringe IV 11/10/21 21:59 10 ml BID NORMA Administration Sodium Chloride 10 ml 11/05/21 17:25 Sodium Chloride 0.9% 10 Ml Flush Syringe IV 11/10/21 17:24 PRN PRN LINE FLUSH Valsartan 160 mg 11/09/21 10:00 11/09/21 22:00 Valsartan 160mg Tab PO 160 mg BID NORMA Administration
[2021-11-10 10:09] LABS: BUN/Creatinine Ratio 12; Blood Urea Nitrogen 15 mg/dL (9-20); Calcium 9.7 mg/dL (8.4-10.2); Hemolysis Index 0
[2021-11-10] MEDS: VALSARTAN 160MG TAB PO SCH ×2 (10:24→21:33)
[2021-11-10] MEDS: ASPIRIN 81 MG TAB CHEW PO SCH (10:24)
[2021-11-10] MEDS: FUROSEMIDE 40 MG/4 ML INJ IV SCH ×2 (10:24→21:33)
[2021-11-10] MEDS: METOPROLOL TARTRATE 25 MG TAB PO SCH ×2 (10:24→14:00)
--- NOTE | 2021-11-10 15:06 | Progress Note ---
Assessment and Plan Assessment: Hypertensive Emergency Acute HFrEF CMP (EF 20-25% on echo this admission) ANSHU Morbid Obesity ?OHS/ALVERTO Plan: Continue IV Lasix 40mg BID with strict I/Os and close monitoring of renal indices & electrolytes. BP remains markedly uncontrolled and resistant despite ongoing adjustments to oral antihypertensives. Increase Lopressor to 100mg BID. Will be converted to Toprol XL at discharge. Continue Valsartan 160mg BID. Continue Hydralazine 100mg TID. Add Nifedipine 60mg daily and titrate up as needed. Plan for LHC tentatively in AM if not orthopneic. Pt seen in conjunction with Dr. Killian Ferreira, who agrees with the assessment and plan of care. - Patient Problems (1) Hypertensive emergency Current Visit: Yes Status: Acute (2) Acute HFrEF (heart failure with reduced ejection fraction) Current Visit: Yes Status: Acute (3) ANSHU (acute kidney injury) Current Visit: Yes Status: Acute (4) Morbid obesity Current Visit: Yes Status: Chronic Subjective Date of service: 11/10/21 Principal diagnosis: Hypertensive Emergency, Acute HFrEF Interval history: Breathing is much better today. On 2L NC but feels ok without supplemental O2. Still has significant edema but improving. Objective Vital Signs Temp Pulse Resp BP Pulse Ox 11/10/21 12:52 98.1 F 77 18 170/96 90 11/10/21 12:00 81 96 11/10/21 08:24 98.1 F 86 18 177/110 90 11/10/21 03:12 97.9 F 78 18 191/110 91 11/09/21 23:14 98.2 F 82 18 157/89 92 11/09/21 22:00 96 11/09/21 19:40 98.1 F 86 18 165/91 93 11/09/21 17:44 186/100 11/09/21 17:42 186/100 - Physical Examination General: No Apparent Distress HEENT: Positive: EOMI, Normocephaly Neck: Negative: JVD/HJR Cardiac: Positive: Reg Rate and Rhythm, S1/S2 Lungs: Positive: Decreased Breath Sounds Neuro: Positive: Grossly Intact Abdomen: Positive: Distended. Negative: Tender Skin: Negative: Rash Extremities: Present: +2 Edema, warm - Labs and Meds Comprehensive Metabolic Panel 11/10/21 Range/Units 09:30 Sodium 140 (137-145) mmol/L Potassium 3.5 L (3.6-5.0) mmol/L Chloride 99.0 (98-107) mmol/L Carbon Dioxide 31 H (22-30) mmol/L BUN 15 (9-20) mg/dL Creatinine 1.3 (0.8-1.3) mg/dL Glucose 154 H (75-100) mg/dL Calcium 9.7 (8.4-10.2) mg/dL - Imaging and Cardiology EKG: report reviewed, image reviewed Echo: report reviewed - Telemetry EKG Rhythm: Sinus Rhythm - EKG Sinus rhythms and dysrhythmias: sinus rhythm Chamber hypertrophy or enlargement: left ventricular hypertro Repolarization changes or abnormalities: nonspecific abnormality, ST segment, and/or T wave
[2021-11-10] MEDS ORDERED: NIFEdipine XL 60 MG TAB PO SCH (16:00)
[2021-11-10] MEDS ORDERED: METOPROLOL TARTRATE 25 MG TAB PO SCH (22:00)
[2021-11-11] MEDS: hydrALAZINE 100 MG TAB PO SCH (05:29)
[2021-11-11 05:30] LABS: Basophils # (Auto) 0.1 K/mm3 (0.0-0.1); Eosinophils # (Auto) 0.2 K/mm3 (0.0-0.4); Eosinophils % (Auto) 2.1 % (0.0-4.3); Hematocrit 47.3 % (35.5-45.6); Hemoglobin 14.9 gm/dl (11.8-15.2); Lymphocytes # (Auto) 2.4 K/mm3 (1.2-5.4); Mean Corpuscular HGB Conc 32 % (32-34); Mean Corpuscular Volume 88 fl (84-94); Monocytes # (Auto) 0.8 K/mm3 (0.0-0.8); Monocytes % (Auto) 8.8 % (0.0-7.3); Platelet Count 280 K/mm3 (140-440); Red Blood Count 5.37 M/mm3 (3.65-5.03); Red Cell Distribution Width 17.1 % (13.2-15.2)
[2021-11-11 05:32] LABS: INR 1.08 (0.87-1.13)
[2021-11-11 05:33] LABS: Partial Thromboplastin Time 34.4 Sec. (24.2-36.6)
[2021-11-11 05:45] LABS: BUN/Creatinine Ratio 15; Blood Urea Nitrogen 18 mg/dL (9-20); Calcium 9.1 mg/dL (8.4-10.2); Hemolysis Index 16
[2021-11-11] MEDS ORDERED: ASPIRIN EC 325 MG TAB PO NR (07:26)
--- NOTE | 2021-11-11 07:33 | Progress Note ---
Assessment and Plan Assessment and plan: 47 YO Male with Obesity Hypoventilation Syndrome, HTN presents ED for evaluation. Patient reports it is hard to breathe and my legs are swollen. Patient states that over the past 2 weeks he has experienced shortness of breath, decreased exercise tolerance, dyspnea on exertion, dyspnea at rest, leg swelling, orthopnea, paroxysmal nocturnal dyspnea, 10 pound unintentional weight gain, and shortness of breath with worsening symptoms over the same timeframe. Patient was seen and evaluated at the [facility] outpatient clinic today and was found to have an elevated blood pressure and a pulse oximetry of 85% on room air. EMS was notified and upon arrival the patient was found to be in distress and subsequent transported to [facility] for further care and evaluation of the aforementioned symptoms. The patient was seen and evaluated in the emergency department. All lab and imaging studies reviewed. Patient was found to have a blood pressure 219-247 mmHg / 140-157 mmHg which is consistent with hypertensive emergency as well as clinical symptoms consistent with CHF decompensation, as well as acute kidney injury. Patient initiated on nitro drip and admitted to IMCU due to increased risk of worsening symptoms and for medical stabilization. Patient also initiated on CHF protocol. Patient treated with diuretic therapy in the emergency department with improvement in symptoms and normalization of pulse oximetry. Patient denies fever, chills, chest pain, palpitation, adductive cough, skin rash, recent contact, or known exposure to COVID-19. No prior admission for review. No medication listed at time of admission for reconciliation. Advanced care planning conducted in ED. 11/07: Patient was hypotensive overnight as a result beta-leola has been decreased to 25 mg twice daily. Renal function has also improved. Unfortunately I do not have an accurate I's and O's. Will discuss with ca rdiology today if any ischemic work-up will be done as patient is noted to have an ejection fraction on echocardiogram done 11/05/2021-technically difficult study. Severe global hypokinesis of LV. LVEF 20 to 25%. Transmitral Doppler flow pattern suggests impaired relaxation. Right ventricle is dilated. Right ventricle is hypokinetic. Right atrium is dilated. No pericardial effusion In the meantime we will continue with Lasix 40 mg IV twice daily, lisinopril of 20 mg p.o. daily Strict I&O's, daily weights, Continue education on importance of fluid restrictions, diet restrictions, and medication compliance. We will try to further diuresis today and anticipate discharge in the next 24 hours if okay with cardiology 11/08: Patient seen and examined once again with hypertensive urgency. Adjustments made to medications. Hydralazine added. Beta-leola increased. Patient also noted to have mild increase in creatinine as a result Lasix has been adjusted. We will continue inpatient monitoring to ensure adequate control blood pressure and fluid management. I have also discussed with her [facility] physician group and their recommendation is that if the patient needs to continue in the hospital and if blood pressure is better controlled we will likely transfer out to one of the accepting facilities in a.m. 11/09: Patient's blood pressure remains significantly elevated systolic over 190. 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 Goal is to achieve negative fluid balance. Continue with fluid restrictions at this time. Discussed with nursing staff to go ahead and give him a medication earlier. Patient did respond before to Procardia although when asked about it And the nurses have a used to check blood pressure he describes as sometimes the cough had slipped down to his wrist. In any case he remains with hypertensive urgency consider gradual treatment if this modalities do not improve he may need to be changed to a drip. 11/10: Patient seen and examined yesterday beta-leola was increased to 50 mg 3 times daily, there is also addition to valsartan that was started at 160 mg twice daily and also hydralazine increased to 100 mg 3 times daily. Blood pressure did correct some but this morning remains elevated. However patient has not received a.m. medication despite this elevated systolic in the 190s systolic acceptable. Additional Lasix was also given yesterday. Reports appropriate diuresis. We will discussed with cardiology and nephrology about any additional adjustments. Renal function is improved. Awaiting repeat labs for today. Tentatively plan for cardiac cath in a.m. 11/11: BP controlled with the addition of Nifedipine, Awaiting possible Cardiac cath today. Acute hypoxic respiratory [id number] orthopenia still persist Hypertensive emergency Acute Systolic Heart failure NYHA 3 ANSHU with vasomotor nephropathy Secondary Coagulopathy Hypokalemia ALVERTO Elevated LFT MORBID OBESITY Non Complaint Has not seen a doctor since he was 6years old until yesterday Has been diagnosed with sleep apnea since college Falls asleep during the day time for the last month Orthopena for the last 10 days Leg swelling for the last 6 weeks Continue with goal-directed medical therapy. Had initially started the patient on Procardia but per cardiology adjusted beta- leola and KOBE inhibitor instead. We will monitor renal function. Dietitian consultation Acurate I/O Cardene drip discontinued. Nephrology consult input noted Cardiology consult input noted Advance care planning discussion had with the patient maintains full code. Plan of care discussed in detail Preventive care discussion also had with the patient on management of congestive heart failure in addition to obstructive sleep apnea and the need to have his clinical sleep study on discharge. Weight loss counseling also provided for 15 minutes. Continue IMCU admission till BP stablized Critical care time 35 minutes Hospitalist Physical - Constitutional Vitals: Temp Pulse Resp BP Pulse Ox 98.3 F 79 18 142/89 93 11/10/21 16:04 11/11/21 03:33 11/10/21 16:04 11/11/21 04:14 11/11/21 03:33 General appearance: Present: mild distress, obese HEART Score - HEART Score Troponin: Troponin T < 0.010 ng/mL (0.00-0.029) 11/05/21 19:14 Results - Labs CBC & Chem 7: 11/11/21 04:47 11/11/21 04:47 Labs: Laboratory Last Values WBC 9.0 K/mm3 (4.5-11.0) 11/11/21 04:47 RBC 5.37 M/mm3 (3.65-5.03) H 11/11/21 04:47 Hgb 14.9 gm/dl (11.8-15.2) 11/11/21 04:47 Hct 47.3 % (35.5-45.6) H 11/11/21 04:47 MCV 88 fl (84-94) 11/11/21 04:47 MCH 28 pg (28-32) 11/11/21 04:47 MCHC 32 % (32-34) 11/11/21 04:47 RDW 17.1 % (13.2-15.2) H 11/11/21 04:47 Plt Count 280 K/mm3 (140-440) 11/11/21 04:47 Lymph % (Auto) 27.0 % (13.4-35.0) 11/11/21 04:47 Becker % (Auto) 8.8 % (0.0-7.3) H 11/11/21 04:47 Eos % (Auto) 2.1 % (0.0-4.3) 11/11/21 04:47 Baso % (Auto) 1.0 % (0.0-1.8) 11/11/21 04:47 Lymph # (Auto) 2.4 K/mm3 (1.2-5.4) 11/11/21 04:47 Becker # (Auto) 0.8 K/mm3 (0.0-0.8) 11/11/21 04:47 Eos # (Auto) 0.2 K/mm3 (0.0-0.4) 11/11/21 04:47 Baso # (Auto) 0.1 K/mm3 (0.0-0.1) 11/11/21 04:47 Seg Neutrophils % 61.1 % (40.0-70.0) 11/11/21 04:47 Seg Neutrophils # 5.5 K/mm3 (1.8-7.7) 11/11/21 04:47 PT 15.2 Sec. (12.2-14.9) H 11/11/21 04:47 INR 1.08 (0.87-1.13) 11/11/21 04:47 APTT 34.4 Sec. (24.2-36.6) 11/11/21 04:47 D-Dimer 378.20 ng/mlDDU (0-234) H 11/05/21 13:26 Sodium 141 mmol/L (137-145) 11/11/21 04:47 Potassium 3.4 mmol/L (3.6-5.0) L 11/11/21 04:47 Chloride 105.0 mmol/L (98-107) 11/11/21 04:47 Carbon Dioxide 27 mmol/L (22-30) 11/11/21 04:47 Anion Gap 12 mmol/L 11/11/21 04:47 BUN 18 mg/dL (9-20) 11/11/21 04:47 Creatinine 1.2 mg/dL (0.8-1.3) 11/11/21 04:47 Estimated GFR > 60 ml/min 11/11/21 04:47 BUN/Creatinine Ratio 15 % 11/11/21 04:47 Glucose 94 mg/dL (75-100) 11/11/21 04:47 POC Glucose 103 mg/dL (70-105) 11/11/21 04:48 Calcium 9.1 mg/dL (8.4-10.2) 11/11/21 04:47 Magnesium 1.90 mg/dL (1.7-2.3) 11/08/21 04:10 Total Bilirubin 2.00 mg/dL (0.1-1.2) H 11/07/21 05:53 AST 38 units/L (5-40) 11/07/21 05:53 ALT 86 units/L (7-56) H 11/07/21 05:53 Alkaline Phosphatase 80 units/L (35-129) 11/07/21 05:53 Troponin T < 0.010 ng/mL (0.00-0.029) 11/05/21 19:14 NT-Pro-B Natriuret Pep 7394 pg/mL (0-450) H 11/05/21 15:35 Total Protein 6.0 g/dL (6.3-8.2) L 11/07/21 05:53 Albumin 3.9 g/dL (3.9-5) 11/07/21 05:53 Albumin/Globulin Ratio 1.9 % 11/07/21 05:53 Triglycerides 90 mg/dL (2-149) 11/07/21 05:53 Cholesterol 168 mg/dL (50-199) 11/07/21 05:53 LDL Cholesterol Direct 120 mg/dL (50-130) 11/07/21 05:53 HDL Cholesterol 32 mg/dL (40-59) L 11/07/21 05:53 Cholesterol/HDL Ratio 5.25 % 11/07/21 05:53 TSH 3.080 mlU/mL (0.270-4.200) 11/05/21 19:14 Free T4 1.41 ng/dL (0.76-1.46) 11/05/21 19:14 Blood Type O NEGATIVE 11/10/21 09:30 Antibody Screen Negative 11/10/21 09:30 Umaña/IV: Voiding Method Toilet Active Medications - Current Medications Current Medications: Generic Name Dose Route Start Last Admin Trade Name Freq PRN Reason Stop Dose Admin Acetaminophen 650 mg 11/05/21 18:00 Acetaminophen 325 Mg Tab PO Q6H PRN Pain MILD(1-3)/Fever >100.5/COLUNGA Albuterol 2.5 mg 11/05/21 18:00 Albuterol 2.5 Mg/3 Ml Nebu IH Q3HRT PRN Shortness Of Breath Aspirin 81 mg 11/08/21 10:00 11/10/21 10:24 Aspirin 81 Mg Tab Chew PO 81 mg QDAY NORMA Administration Aspirin 325 mg 11/11/21 07:26 Aspirin Ec 325 Mg Tab PO 11/11/21 07:27 ONCE ONE Atorvastatin Calcium 10 mg 11/07/21 22:00 11/10/21 21:34 Atorvastatin 10 Mg Tab PO 10 mg QHS NORMA Administration Furosemide 40 mg 11/08/21 23:49 11/10/21 21:33 Furosemide 40 Mg/4 Ml Inj IV 40 mg BID NORMA Administration Hydralazine HCl 10 mg 11/09/21 02:32 11/10/21 03:43 Hydralazine 20 Mg/1 Ml Inj IV 10 mg Q4H PRN Administration Hypertension SBP >160 Hydralazine HCl 100 mg 11/09/21 14:00 11/11/21 05:29 Hydralazine 100 Mg Tab PO Not Given Q8HR [facility] Sodium Chloride 500 mls @ 50 mls/hr 11/11/21 08:00 Nacl 0.9% 500 Ml IV DIRECT NORMA Metoprolol Tartrate 100 mg 11/10/21 22:00 11/10/21 21:34 Metoprolol Tartrate 25 Mg Tab PO 100 mg BID NORMA Administration Morphine Sulfate 1 mg 11/05/21 18:00 Morphine 4 Mg/1 Ml Inj IV Q8H PRN Pain , Severe (7-10) Nifedipine 60 mg 11/10/21 16:00 11/10/21 17:07 Nifedipine Xl 60 Mg Tab PO 60 mg QDAY NORMA Administration Oxycodone/Acetaminophen 1 tab 11/05/21 17:25 Oxycodone /Acetaminophen 5-325mg Tab PO Q16H PRN Pain, Moderate (4-6) Potassium Chloride 40 meq 11/11/21 08:00 Potassium Chloride Er 20 Meq Tab PO 11/11/21 14:01 Q8HR NORMA Valsartan 160 mg 11/09/21 10:00 11/10/21 21:33 Valsartan 160mg Tab PO 160 mg BID NORMA Administration Nutrition/Malnutrition Assess - Dietary Evaluation Nutrition/Malnutrition Findings: Nutrition Notes Start: 11/07/21 15:44 Freq: Status: Active Protocol: Document 11/07/21 15:44 NOE (Rec: 11/07/21 16:12 NOE [id number]) Nutrition Notes 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 Current Diet Cardiac Diet (since D 11/05). Labs/Tests 11/07: K 3.4, CO2 32, Glu 105. Pertinent Medications 11/07: Nutritionally unremarkable. 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 No reports available on Pt's PO intake of meals at the time , will assess at F/U. Pt is on Room Air, [id number] @ 98%, according to Physical Assessment History notes. Pt presents generalized pitting edema 2+, according to Physical Assessment History notes. Pt shows no signs of concern for skin risk at the time, according to Physical Assessment History notes. Percent of energy/protein needs met: Prescribed Cardiac Diet provides for energy/protein needs (2,230 Kcal/85 g) during LOS. Burn Absent Trauma Absent GI Symptoms None Food Allergy No Skin Integrity/Comment Assessment WNL. 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 As Evidenced by Signs and Symptoms BMI: 50.3 Kg/m2. Is patient on ventilator? No Is Patient Ambulatory and/or Out of Bed Yes [facility] [ 3380.000 [id number]] Kcal/Kg value to use for calculation 14 Approximate Energy Requirements Using 2355 kcal/Kg Calculation Used for Recommendations Kcal/kg Additional Notes Protein: <2.5 g/Kg IBW; 122 g/ day. Fluids: 1 ml/Kcal, or as per MD. Nutrition Intervention Change Diet Order: Continue Cardiac Diet as tolerated. Goal #1 Adjust the dietary intervention to better serve Pt's needs and clinical conditions during LOS. Follow-Up By: 11/14/21 Additional Comments Continue monitoring food tolerance, %PO intake of meals , and BM.
[2021-11-11] MEDS: hydrALAZINE 20 MG/1 ML INJ IV PRN (07:56)
[2021-11-11] MEDS ORDERED: POTASSIUM CHLORIDE ER 20 MEQ TAB PO SCH (08:00)
[2021-11-11] MEDS ORDERED: SODIUM CHLORIDE 0.9% 500 ML 500 ML IV SCH (08:00)
[2021-11-11] MEDS ORDERED: MIDAZOLAM 2 MG/2 ML INJ ONE (08:06)
[2021-11-11] MEDS ORDERED: VERAPAMIL 5 MG/2 ML INJ ONE (08:06)
[2021-11-11] MEDS ORDERED: HEPARIN/NS 5000 UNIT/500ML 1,000 ML IR ONE (08:06)
[2021-11-11] MEDS ORDERED: HEPARIN 10,000 UNITS/10 ML VIAL ONE (08:06)
[2021-11-11] MEDS ORDERED: fentaNYL 100 MCG/2 ML INJ ONE (08:06)
[2021-11-11] MEDS ORDERED: LIDOCAINE MPF (2%) 20 MG/1 ML VIAL 5 ML ONE (08:07)
[2021-11-11] MEDS: NITROGLYCERIN SYRINGE 3 ML ONE ×2 (09:11→09:12)
--- NOTE | 2021-11-11 09:37 | Cardiac Catherization Report ---
DATE OF SERVICE: 11/11/2021 LEFT HEART CATHETERIZATION CLINICAL INFORMATION: A 46-year-old male with morbid obesity, obstructive sleep apnea, acute systolic heart failure, EF 25% with acute respiratory failure, here for left heart catheterization for ischemic evaluation. Procedure was done with moderate sedation started at 9:05 finished at 9:20, 15 minutes of moderate sedation. DESCRIPTION OF PROCEDURE: Procedure was done via the right radial artery, sterile technique and local anesthesia. A 6-Lithuanian radial sheath inserted. Left system with JL3.5 catheter. Left main is large and patent, bifurcates into large LAD, is patent. Diagonal 1 is a medium caliber vessel, patent. Diagonal 2 small caliber, patent. Circumflex, large caliber vessel. OM1, OM2 are medium to large caliber was patent and distal circumflex is medium caliber vessel, patent. RCA engaged with JR4 is a large, dominant vessel, was patent. PDA, PLV are small to medium caliber, patent. LV gram done in FRENCH and VERMA shows normalization of LV function, EF 55%, LVEDP of 20 mmHg, LV is 163, aortic is 163/95. No gradient across the aortic valve on pullback. The 5-Lithuanian catheters all taken over a guidewire. A 6-Lithuanian radial sheath was DC. Radial band applied. No hematoma, no bleeding. SUMMARY: Normal coronaries. Normalization of LV function with LVEDP of 20 mmHg. Aggressive medical management for weight loss, BP control. Discussed this with the patient and the patient's family in detail. TID: [id number] RECEIPT: [id number] KATHY/GABRIELLE
[2021-11-11] MEDS ORDERED: NIFEdipine XL 60 MG TAB PO SCH (09:50)
[2021-11-11] MEDS ORDERED: traMADol 50 MG TAB PO PRN (10:00)
--- NOTE | 2021-11-11 10:06 | Progress Note ---
Assessment and Plan Patient is a 46-year-old male with no known past medical history who presented to the ED yesterday after being sent from his outpatient [facility] with blood pressures of 257/159 and volume overload Hypertensive emergency Acute HFrEF ANSHU-nephrology follow Morbid obesity ALVERTO Echo 11/05/2021-technically difficult study. Severe global hypokinesis of LV. LVEF 20 to 25%. Transmitral Doppler flow pattern suggests impaired relaxation. Right ventricle is dilated. Right ventricle is hypokinetic. Right atrium is dilated. No pericardial effusion Cardiac cath 11/11/2021-normal coronaries with normalization of LV function. Plan: Currently on aspirin, atorvastatin 10 mg p.o. nightly, hydralazine 100 mg p.o. 3 times daily, valsartan 160 mg p.o. twice daily Due to pause on monitor overnight will decrease metoprolol to 50 mg p.o. twice daily. Suspect was related to ALVERTO patient should have outpatient sleep studies Due to decreasing metoprolol Will increase nifedipine to 90 mg p.o. daily Patient appears near euvolemic on exam we will stop Lasix IV and convert to Lasix 40 mg p.o. daily Aggressive medical management for weight loss and BP control. Discussed importance with patient and patient's family who is at bedside Cardiac status otherwise stable for discharge Should follow-up with the [facility] medical specialist in 1 to 2 weeks after discharge Patient seen in conjunction with Dr. Gardner who agrees with this plan of care - Patient Problems (1) Hypertensive emergency Current Visit: Yes Status: Acute (2) New onset of congestive heart failure Current Visit: Yes Status: Acute (3) Obesity Current Visit: Yes Status: Acute (4) Acute renal insufficiency Current Visit: Yes Status: Acute (5) Obesity hypoventilation syndrome Current Visit: Yes Status: Acute (6) Acute kidney injury (ANSHU) with acute tubular necrosis (ATN) Current Visit: Yes Status: Acute Subjective Date of service: 11/11/21 Principal diagnosis: Hypertensive Emergency, Acute HFrEF Interval history: Patient for cardiac catheterization Sinus on telemetry with 4-second pause overnight sleep Objective Vital Signs Temp Pulse Resp BP BP Pulse Ox 11/11/21 04:14 142/89 11/11/21 03:33 79 93 11/10/21 22:00 96 11/10/21 19:43 81 161/95 91 11/10/21 16:04 98.3 F 79 18 170/91 95 11/10/21 12:52 98.1 F 77 18 170/96 90 11/10/21 12:00 81 96 - Physical Examination General: No Apparent Distress HEENT: Positive: EOMI, Normocephaly Neck: Negative: JVD/HJR Cardiac: Positive: Reg Rate and Rhythm Lungs: Positive: Normal Breath Sounds Neuro: Positive: Grossly Intact Abdomen: Positive: Distended. Negative: Tender Skin: Negative: Rash Extremities: Present: edema, warm - Labs and Meds Coagulation 11/11/21 Range/Units 04:47 PT 15.2 H (12.2-14.9) Sec. INR 1.08 (0.87-1.13) APTT 34.4 (24.2-36.6) Sec. CBC 11/11/21 Range/Units 04:47 WBC 9.0 (4.5-11.0) K/mm3 RBC 5.37 H (3.65-5.03) M/mm3 Hgb 14.9 (11.8-15.2) gm/dl Hct 47.3 H (35.5-45.6) % Plt Count 280 (140-440) K/mm3 Lymph # (Auto) 2.4 (1.2-5.4) K/mm3 [place] # (Auto) 0.8 (0.0-0.8) K/mm3 Eos # (Auto) 0.2 (0.0-0.4) K/mm3 Baso # (Auto) 0.1 (0.0-0.1) K/mm3 Comprehensive Metabolic Panel 11/10/21 11/11/21 Range/Units 09:30 04:47 Sodium 140 141 (137-145) mmol/L Potassium 3.5 L 3.4 L (3.6-5.0) mmol/L Chloride 99.0 105.0 (98-107) mmol/L Carbon Dioxide 31 H 27 (22-30) mmol/L BUN 15 18 (9-20) mg/dL Creatinine 1.3 1.2 (0.8-1.3) mg/dL Glucose 154 H 94 (75-100) mg/dL Calcium 9.7 9.1 (8.4-10.2) mg/dL - Imaging and Cardiology EKG: report reviewed, image reviewed Echo: report reviewed Cardiac cath: report reviewed - Telemetry EKG Rhythm: Sinus Rhythm - EKG Sinus rhythms and dysrhythmias: sinus rhythm Chamber hypertrophy or enlargement: left ventricular hypertro Repolarization changes or abnormalities: nonspecific abnormality, ST segment, and/or T wave
[2021-11-11] MEDS ORDERED: METOPROLOL TARTRATE 25 MG TAB PO SCH (10:30)
[2021-11-11] MEDS: ASPIRIN 81 MG TAB CHEW PO SCH (10:45)
--- NOTE | 2021-11-11 11:14 | Discharge Summary ---
Providers - Providers Date of Admission: 11/05/21 17:25 Attending physician: JACOBY SEGUNDO MD 11/05/21 18:13 Consult to Physician [CONS] Routine Comment: Consulting Provider: HILARY TOLENTINO Physician Instructions: Reason For Exam: chf 11/06/21 08:21 Consult to Physician [CONS] Routine Comment: Consulting Provider: CAS MILLER Physician Instructions: Reason For Exam: ANSHU 11/11/21 09:19 Consult to Cardiac Rehabilitation [CONS] Routine Reason For Exam: Cardiac Rehab Evaluation Hospitalization Reason for admission: SHORTNESS OF BREATH AND Hypertensive Emergency Condition: Stable Hospital course: 47 YO Male with Obesity Hypoventilation Syndrome, HTN presents ED for evaluation. Patient reports it is hard to breathe and my legs are swollen. Patient states that over the past 2 weeks he has experienced shortness of breath, decreased exercise tolerance, dyspnea on exertion, dyspnea at rest, leg swelling, orthopnea, paroxysmal nocturnal dyspnea, 10 pound unintentional weight gain, and shortness of breath with worsening symptoms over the same timeframe. Patient was seen and evaluated at the [facility] today and was fo und to have an elevated blood pressure and a pulse oximetry of 85% on room air. EMS was notified and upon arrival the patient was found to be in distress and subsequent transported to [facility] for further care and evaluation of the aforementioned symptoms. The patient was seen and evaluated in the emergency department. All lab and imaging studies reviewed. Patient was found to have a blood pressure 219-247 mmHg / 140-157 mmHg which is consistent with hypertensive emergency as well as clinical symptoms consistent with CHF decompensation, as well as acute kidney injury. Patient initiated on nitro drip and admitted to [facility] due to increased risk of worsening symptoms and for medical stabilization. Patient also initiated on CHF protocol. Patient treated with diuretic therapy in the emergency department with improvement in symptoms and normalization of pulse oximetry. Patient denies fever, chills, chest pain, palpitation, adductive cough, skin rash, recent contact, or known exposure to COVID-19. No prior admission for review. No medication listed at time of admission for reconciliation. Advanced care planning conducted in ED. 11/07: Patient was hypotensive overnight as a result beta-leola has been decreased to 25 mg twice daily. Renal function has also improved. Unfortunately I do not have an accurate I's and O's. Will discuss with cardiology today if any ischemic work-up will be done as patient is noted to have an ejection fraction on echocardiogram done 11/05/2021-technically difficult study. Severe global hypokinesis of LV. LVEF 20 to 25%. Transmitral Doppler flow pattern suggests impaired relaxation. Right ventricle is dilated. Right ventricle is hypokinetic. Right atrium is dilated. No pericardial effusion In the meantime we will continue with Lasix 40 mg IV twice daily, lisinopril of 20 mg p.o. daily Strict I&O's, daily weights, Continue education on importance of fluid restrictions, diet restrictions, and medication compliance. We will try to further diuresis today and anticipate discharge in the next 24 hours if okay with cardiology 11/08: Patient seen and examined once again with hypertensive urgency. Adjustments made to medications. Hydralazine added. Beta-leola increased. Patient also noted to have mild increase in creatinine as a result Lasix has been adjusted. We will continue inpatient monitoring to ensure adequate control blood pressure and fluid management. I have also discussed with her [facility] and their recommendation is that if the patient needs to continue in the hospital and if blood pressure is better controlled we will likely transfer out to one of the accepting facilities in a.m. 11/09: Patient's blood pressure remains significantly elevated systolic over 190. Discussed with linux [employer] administrator we will go ahead and add Diovan 160 mg twice daily. Ball Warper Tender will increase the Lasix to 40 twice daily to continue aggressive fluid removal as patient is still felt to be fluid overloaded. Goal is to achieve negative fluid balance. Continue with fluid restrictions at this time. Discussed with nursing staff to go ahead and give him a medication earlier. Patient did respond before to Procardia although when asked about it And the nurses have a used to check blood pressure he describes as sometimes the cough had slipped down to his wrist. In any case he remains with hypertensive urgency consider gradual treatment if this modalities do not improve he may need to be changed to a drip. 11/10: Patient seen and examined yesterday beta-leola was increased to 50 mg 3 times daily, there is also addition to valsartan that was started at 160 mg twice daily and also hydralazine increased to 100 mg 3 times daily. Blood pressure did correct some but this morning remains elevated. However patient has not received a.m. medication despite this elevated systolic in the 190s systolic acceptable. Additional Lasix was also given yesterday. Reports appropriate diuresis. We will discussed with cardiology and nephrology about any additional adjustments. Renal function is improved. Awaiting repeat labs for today. Tentatively plan for cardiac cath in a.m. 11/11: BP controlled with the addition of Nifedipine, Cardiac cath today did not reveal significant disease also there was a noted improvement in the EF. Patient will be discharged on the medication as described and counselling was provided to undergo outpatient Sleep studies for ALVERTO. Weight loss counselling provided for about 15 mins Currently on aspirin, atorvastatin 10 mg p.o. nightly, hydralazine 100 mg p.o. 3 times daily, valsartan 160 mg p.o. twice daily Due to pause on monitor overnight will decrease metoprolol to 50 mg p.o. twice daily. Suspect was related to ALVERTO patient should have outpatient sleep studies Due to decreasing metoprolol Will increase nifedipine to 90 mg p.o. daily Lasix 40 mg p.o. 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 Had initially started the patient on Procardia but per cardiology adjusted beta- leola and KOBE inhibitor instead. We will monitor renal function. Dietitian consultation Acurate I/O Cardene drip discontinued. Nephrology consult input noted Cardiology consult input noted Advance care planning discussion had with the patient maintains full code. Plan of care discussed in detail Preventive care discussion also had with the patient on management of congestive heart failure in addition to obstructive sleep apnea and the need to have his clinical sleep study on discharge. Weight loss counseling also provided for 15 minutes. Acute hypoxic respiratory [id number] orthopenia still persist Hypertensive emergency Acute Systolic Heart failure NYHA 3 ANSHU with vasomotor nephropathy Secondary Coagulopathy Hypokalemia ALVERTO Elevated LFT MORBID OBESITY Non Complaint Disposition: HOME / SELF CARE / HOMELESS Final Discharge Diagnosis (Prints w/discharge instructions): Acute hypoxic respiratory uwhqqiu-[id number] orthopenia still persist. Hypertensive emergency. Acute Systolic Heart failure NYHA 3. ANSHU with vasomotor nephropathy. Secondary Coagulopathy. Hypokalemia. ALVERTO. Elevated LFT. MORBID OBESITY. Non Complaint Time spent for discharge: 35 mins Core Measure Documentation - Palliative Care Palliative Care/ Comfort Measures: Not Applicable - Core Measures Any of the following diagnoses?: heart failure - Heart Failure Discharge Requirements KOBE/ARB for LVSD if EF <40%: Yes Beta leola at discharge: Yes Exam - Physical Exam Narrative exam: VITAL SIGNS: Reviewed. GENERAL: The patient appears normally developed, morbidly obese vital signs as documented. HEAD: No signs of head trauma. EYES: Pupils are equal. Extraocular motions intact. EARS: Hearing grossly intact. MOUTH: Oropharynx is normal. NECK: No adenopathy, no JVD. CHEST: Chest with fine rales at the bases breath sounds bilaterally. No wheezes. CARDIAC: Regular rate and rhythm. S1 and S2, without murmurs, gallops, or rubs. VASCULAR: +2 pitting edema. Peripheral pulses normal and equal in all extremities. ABDOMEN: Soft, non tender and non distended. No rebound or guarding, and no masses palpated. Bowel Sounds normal. MUSCULOSKELETAL: Good range of motion of all major joints. Extremities without clubbing, cyanosis. +2 pitting edema bilaterally. NEUROLOGIC EXAM: Alert and oriented x 3 No focal sensory or strength deficits. Speech normal. Follows commands. PSYCHIATRIC: Mood normal. SKIN: detail exam as documented in skin assessment - Constitutional Vitals: Temp Pulse Resp BP Pulse Ox 98.3 F 79 18 142/89 93 11/10/21 16:04 11/11/21 03:33 11/10/21 16:04 11/11/21 04:14 11/11/21 03:33 Plan Activity: advance as tolerated, fall precautions Diet: low salt Special Instructions: record daily weights, record daily BP diary, record blood sugar diary Follow up with: JEN CHAN [Other] - 7 Days Prescriptions: AtorvaSTATin 10 mg PO QHS #30 tablet hydrALAZINE [Apresoline TAB] 100 mg PO Q8HR #30 tab Aspirin [Aspirin BABY CHEW TAB] 81 mg PO QDAY #30 tab.chew Valsartan [Diovan] 160 mg PO BID #60 tablet Potassium Chloride [K-Dur] 20 meq PO DAILY #10 tablet Furosemide [Lasix TAB] 40 mg PO QDAY #30 tablet Metoprolol [Lopressor TAB] 50 mg PO BID #60 tablet NIFEdipine XL [Procardia Xl] 90 mg PO QDAY #30 tablet
[2021-11-11 12:42] VITALS: BP 137/81
--- NOTE | 2021-11-12 08:26 | Electrocardiograph Report ---
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
[2021-11-12] MEDS ORDERED: NIFEdipine XL 90 MG TAB PO SCH (10:00)
[2021-11-12] MEDS ORDERED: FUROSEMIDE 40 MG TAB PO SCH (10:00)
== END 2021-11-11 14:15 | disposition home or self-care (01) | DRG 286 ==
LOC: ED 12:36 → IMCU 17:25 → 4A 11-06 18:44
PROVIDERS: ADMIT Internal Medicine; ATTEND Internal Medicine
PROC: 4A023N7 Measurement of Cardiac Sampling and Pressure, Left Heart, Percutaneous Approach (ICD-10-PCS; principal; 2021-11-11)
PROC: B2111ZZ Fluoroscopy of Multiple Coronary Arteries using Low Osmolar Contrast (ICD-10-PCS; 2021-11-11)
PROC: B2151ZZ Fluoroscopy of Left Heart using Low Osmolar Contrast (ICD-10-PCS; 2021-11-11)
DX: I11.0 Hypertensive heart disease with heart failure (principal); J96.01 Acute respiratory failure with hypoxia; N17.0 Acute kidney failure with tubular necrosis; I16.1 Hypertensive emergency; E66.2 Morbid (severe) obesity with alveolar hypoventilation; D68.9 Coagulation defect, unspecified; Z68.43 Body mass index [BMI] 50.0-59.9, adult; Z91.19 Patient's noncompliance with other medical treatment and regimen; E87.6 Hypokalemia; Z83.3 Family history of diabetes mellitus; Z82.49 Family history of ischemic heart disease and other diseases of the circulatory system
CPT/HCPCS: 36415; 71045; 71275; 76770; 80048; 80053; 80061; 82962; 83735; 83880; 84439; 84443; 84484; 85025; 85027; 85379; 85610; 85730; 86850; 86900; 86901; 93005; 93306; 93458; G0378; J1815; J3490; C1894; C8929; J0360; J1644; J1940; J2250; J3010; J7040; J7050; Q9967